=== PATIENT | female | born 1930 | race Caucasian/White ===

== ENCOUNTER 2019-02-05 11:58 | Emergency (ER) | payer MEDICARE, OTHER ==
[2019-02-05] MEDS ORDERED: SODIUM CHLORIDE 0.9% 1,000 ML IV ONE (12:30)
[2019-02-05] MEDS ORDERED: ONDANSETRON 4 MG/2 ML VIAL IVP STA (12:30)
--- NOTE | 2019-02-05 12:36 | ED ---
General Adult HPI - General Chief complaint: Headache Stated complaint: vomiting, weakness Time Seen by Provider: 02/05/19 12:10 Source: patient Mode of arrival: wheelchair Limitations: no limitations - History of Present Illness Initial comments: Is an 88-year-old female who presents emergency department for generalized fatigue, headache, nausea and vomiting. The patient states that she woke up this morning and felt in her usual state of health however after having a couple coffee she developed some generalized fatigue and some shakiness. She states that she then developed some nausea and a frontal headache. She states that she's vomited about 4 times since that time. She is unable to keep down any fluids. She states that the headache is bifrontal and does not radiate. She has no changes to her vision. No focal weakness or numbness. She states that she does not have any abdominal discomfort however does admit to nausea. She denies any diarrhea however does admit to the soft stools which are chronic for her. No chest pain or shortness of breath currently however the daughter states that she has been having some difficulty with shortness of breath over the last few months with exertion. No lower extremity swelling. She states that she's been urinating normally without any dysuria. She denies any other acute complaints at this time. - Related Data Home Medications Medication Instructions Recorded Confirmed Levothyroxine Sodium [Synthroid] 100 mcg PO DAILY 05/17/15 02/05/19 amLODIPine BESYLATE [Norvasc] 2.5 mg PO DAILY 05/17/15 02/05/19 Multivitamins, Thera [Multivitamin 1 tab PO DAILY 02/05/19 02/05/19 (formulary)] Previous Rx's Medication Instructions Recorded Ondansetron Odt [Zofran Odt] 4 mg PO Q8HR PRN #10 tab 02/05/19 Allergies Allergy/AdvReac Type Severity Reaction Status Date / Time levofloxacin Allergy Unknown Verified 02/05/19 13:05 Review of Systems ROS Statement: Those systems with pertinent positive or pertinent negative responses have been documented in the HPI. ROS Other: All systems not noted in ROS Statement are negative. Past Medical History Past Medical History: Hyperlipidemia, Hypertension, Myocardial Infarction ([place]), Thyroid Disorder History of Any Multi-Drug Resistant Organisms: None Reported Past Surgical History: Appendectomy, Heart Catheterization With Stent, Hysterectomy, Orthopedic Surgery, Tonsillectomy Past Psychological History: No Psychological Hx Reported Smoking Status: Former smoker Past Alcohol Use History: None Reported Past Drug Use History: None Reported General Exam - General Exam Comments Initial Comments: Constitutional: Awake alert Appears comfortable Head: Normocephalic atraumatic Eyes: no conjunctival injection No scleral icterus EOMI pupils are 4 mm and reactive bilaterally Neck: No JVD Supple Heart: Regular rate rhythm normal S1-S2 no murmurs Lungs: Clear to auscultation bilaterally No wheezing No rales Abdomen: Soft nondistended nontender Extremities: Non edematous DP pulses intact Radial pulses intact Neuro: A&Ox3, cranial nerves II through XII are grossly intact, 5 out of 5 strength in upper and lower Chevys bilaterally, sensation intact in all extremities, no ataxia with finger-nose and heel to velez testing No focal neurologic deficits Psych: Appropriate mood and affect Limitations: no limitations Course Vital Signs 02/05/19 02/05/19 02/05/19 12:04 14:10 15:32 Temperature 97.3 F L 98.2 F Pulse Rate 63 66 64 Respiratory 18 20 16 Rate Blood Pressure 140/78 177/78 187/78 O2 Sat by Pulse 97 98 98 Oximetry Medical Decision Making - Medical Decision Making This is an 88-year-old female who presents emergency department for nausea, vomiting, fatigue, and headache. The headache had resolved by the time she got emergency department. She no focal neurologic deficits on examination. CT the head did not show any acute abnormalities. Blood work was reviewed and unremarkable as well. The patient felt improved after Zofran. At this time I feel that she is likely suffering from a viral illness however needs to monitor her symptoms closely. I told to return if she has worsening or recurring symptoms. Follow up closely with her primary doctor. All questions were answered. - Lab Data Result diagrams: 02/05/19 12:50 02/05/19 12:50 Lab Results 02/05/19 02/05/19 02/05/19 Range/Units 12:50 12:50 12:50 WBC 9.3 (3.8-10.6) k/uL RBC 4.44 (3.80-5.40) m/uL Hgb 13.2 (11.4-16.0) gm/dL Hct 40.4 (34.0-46.0) % MCV 90.9 (80.0-100.0) fL MCH 29.7 (25.0-35.0) pg MCHC 32.6 (31.0-37.0) g/dL RDW 13.4 (11.5-15.5) % Plt Count 267 (150-450) k/uL Neutrophils % 82 % Lymphocytes % 11 % Monocytes % 4 % Eosinophils % 1 % Basophils % 0 % Neutrophils # 7.6 (1.3-7.7) k/uL Lymphocytes # 1.0 (1.0-4.8) k/uL Monocytes # 0.4 (0-1.0) k/uL Eosinophils # 0.1 (0-0.7) k/uL Basophils # 0.0 (0-0.2) k/uL Sodium 140 (137-145) mmol/L Potassium 4.5 (3.5-5.1) mmol/L Chloride 105 (98-107) mmol/L Carbon Dioxide 27 (22-30) mmol/L Anion Gap 8 mmol/L BUN 32 H (7-17) mg/dL Creatinine 0.84 (0.52-1.04) mg/dL Est GFR (CKD-EPI)AfAm 73 (>60 ml/min/1.73 sqM) Est GFR (CKD-EPI)NonAf 63 (>60 ml/min/1.73 sqM) Glucose 117 H (74-99) mg/dL Calcium 9.9 (8.4-10.2) mg/dL Magnesium 2.2 (1.6-2.3) mg/dL Total Bilirubin 0.4 (0.2-1.3) mg/dL AST 24 (14-36) U/L ALT 19 (9-52) U/L Alkaline Phosphatase 96 (38-126) U/L Troponin I <0.012 (0.000-0.034) ng/mL Total Protein 6.8 (6.3-8.2) g/dL Albumin 4.1 (3.5-5.0) g/dL Lipase 104 (23-300) U/L Urine Color Urine Appearance (Clear) Urine pH (5.0-8.0) Ur Specific [place] (1.001-1.035) Urine Protein (Negative) Urine Glucose (UA) (Negative) Urine Ketones (Negative) Urine Blood (Negative) Urine Nitrite (Negative) Urine Bilirubin (Negative) Urine Urobilinogen (<2.0) mg/dL Ur Leukocyte Esterase (Negative) Ur Squamous Epith Cells (0-4) /hpf Urine Bacteria (None) /hpf Urine Mucus (None) /hpf 02/05/19 Range/Units 13:42 WBC (3.8-10.6) k/uL RBC (3.80-5.40) m/uL Hgb (11.4-16.0) gm/dL Hct (34.0-46.0) % MCV (80.0-100.0) fL MCH (25.0-35.0) pg MCHC (31.0-37.0) g/dL RDW (11.5-15.5) % Plt Count (150-450) k/uL Neutrophils % % Lymphocytes % % Monocytes % % Eosinophils % % Basophils % % Neutrophils # (1.3-7.7) k/uL Lymphocytes # (1.0-4.8) k/uL Monocytes # (0-1.0) k/uL Eosinophils # (0-0.7) k/uL Basophils # (0-0.2) k/uL Sodium (137-145) mmol/L Potassium (3.5-5.1) mmol/L Chloride (98-107) mmol/L Carbon Dioxide (22-30) mmol/L Anion Gap mmol/L BUN (7-17) mg/dL Creatinine (0.52-1.04) mg/dL Est GFR (CKD-EPI)AfAm (>60 ml/min/1.73 sqM) Est GFR (CKD-EPI)NonAf (>60 ml/min/1.73 sqM) Glucose (74-99) mg/dL Calcium (8.4-10.2) mg/dL Magnesium (1.6-2.3) mg/dL Total Bilirubin (0.2-1.3) mg/dL AST (14-36) U/L ALT (9-52) U/L Alkaline Phosphatase (38-126) U/L Troponin I (0.000-0.034) ng/mL Total Protein (6.3-8.2) g/dL Albumin (3.5-5.0) g/dL Lipase (23-300) U/L Urine Color Yellow Urine Appearance Cloudy H (Clear) Urine pH 6.5 (5.0-8.0) Ur Specific [place] 1.017 (1.001-1.035) Urine Protein Negative (Negative) Urine Glucose (UA) Negative (Negative) Urine Ketones Trace H (Negative) Urine Blood Negative (Negative) Urine Nitrite Positive H (Negative) Urine Bilirubin Negative (Negative) Urine Urobilinogen <2.0 (<2.0) mg/dL Ur Leukocyte Esterase Small H (Negative) Ur Squamous Epith Cells 1 (0-4) /hpf Urine Bacteria Many H (None) /hpf Urine Mucus Rare H (None) /hpf Disposition Clinical Impression: Nausea & vomiting Disposition: HOME SELF-CARE Condition: Stable Instructions (If sedation given, give patient instructions): Acute Nausea and Vomiting (ED) Prescriptions: Ondansetron Odt [Zofran Odt] 4 mg PO Q8HR PRN #10 tab PRN Reason: Nausea Is patient prescribed a controlled substance at d/c from ED?: No Referrals: Angel Damian MD [Primary Care Provider] - 1-2 days
[2019-02-05 13:00] LABS: Basophils % (A) 0 %; Eosinophils # (A) 0.1 k/uL (0-0.7); Eosinophils % (A) 1 %; HCT 40.4 % (34.0-46.0); HGB 13.2 gm/dL (11.4-16.0); Lymphocytes % (A) 11 %; MCH 29.7 pg (25.0-35.0); MCHC 32.6 g/dL (31.0-37.0); MCV 90.9 fL (80.0-100.0); Mean Platelet Volume 7.6; Monocytes # (A) 0.4 k/uL (0-1.0); Monocytes % (A) 4 %; Neutrophils # (A) 7.6 k/uL (1.3-7.7); Neutrophils % (A) 82 %; Platelet Count 267 k/uL (150-450); RBC 4.44 m/uL (3.80-5.40); RDW 13.4 % (11.5-15.5); WBC 9.3 k/uL (3.8-10.6)
[2019-02-05 13:07] LABS: Albumin 4.1 g/dL (3.5-5.0); Calcium 9.9 mg/dL (8.4-10.2); Magnesium 2.2 mg/dL (1.6-2.3); Potassium 4.5 mmol/L (3.5-5.1); Total Bilirubin 0.4 mg/dL (0.2-1.3); Total Protein 6.8 g/dL (6.3-8.2)
[2019-02-05 14:00] LABS: Appearance,Urine Cloudy (Clear); Bacteria,Urine Many /hpf; Bilirubin,Urine Negative (Negative); Blood,Urine Negative (Negative); Color,Urine Yellow; Glucose,Urine (UA) Negative (Negative); Ketones,Urine Trace (Negative); Leukocyte Esterase,Urine Small (Negative); Mucus,Urine Rare /hpf; Nitrite,Urine Positive (Negative); PH, Urine 6.5 (5.0-8.0); Protein,Urine Negative (Negative); Specific Gravity,Urine 1.017 (1.001-1.035); Squamous Epithelial Cell,Urine 1 /hpf (0-4); Urobilinogen,Urine <2.0 mg/dL (<2.0)
--- NOTE | 2019-02-05 14:19 | XR ---
EXAMINATION TYPE: XR chest 2V DATE OF EXAM: 02/05/2019 COMPARISON: NONE HISTORY: Shortness of breath TECHNIQUE: Frontal and lateral views of the chest are obtained. FINDINGS: There is no focal air space opacity, pleural effusion, or pneumothorax seen. The cardiac silhouette size is within normal limits. The osseous structures are intact. Aorta is dense. Right h emidiaphragm slightly elevated. IMPRESSION: No acute cardiopulmonary process.
--- NOTE | 2019-02-05 14:21 | CT ---
EXAMINATION TYPE: CT brain wo con DATE OF EXAM: 02/05/2019 COMPARISON: None HISTORY: Headache, nausea, dizziness. CT DLP: 1099.4 mGycm Automated exposure control for dose reduction was used. Helical imaging through the brain. FINDINGS: There is cortical atrophy present. Periventricular white matter shows low attenuation. There are cere bral vascular calcifications present. Calvarium is intact. Paranasal sinuses and mastoid air cells ar e well aerated. Orbits are symmetric. IMPRESSION: AGE-RELATED CHANGES OF ATROPHY AND CHRONIC SMALL VESSEL ISCHEMIA.
[2019-02-05 15:33] VITALS: BP 187/78; PULSE 64; RESP 16; TEMP 98.2
== END 2019-02-05 15:32 | disposition home or self-care (01) ==
LOC: EC 11:58
DX: R11.2 Nausea with vomiting, unspecified (principal); R51 Headache; R53.83 Other fatigue; E07.9 Disorder of thyroid, unspecified; I10 Essential (primary) hypertension; I25.2 Old myocardial infarction; Z79.890 Hormone replacement therapy; Z79.899 Other long term (current) drug therapy; Z88.1 Allergy status to other antibiotic agents; Z87.891 Personal history of nicotine dependence; Z95.5 Presence of coronary angioplasty implant and graft
CPT/HCPCS: 99284; 96374; 96361; 36415; 93005; 80053; 83690; 83735; 84484; 85025; 81001; 87086; 87077; 87186; 71046; 70450; J2405

== ENCOUNTER → 2019-04-15 | Outpatient (CLI) | payer MEDICARE | END | disposition home or self-care (01) | LOC: LABPAT 15:15 | PROVIDERS: ATTEND Orthopaedic Surgery | DX: Z01.812 Encounter for preprocedural laboratory examination (principal); M16.12 Unilateral primary osteoarthritis, left hip | CPT/HCPCS: 87070 ==

== ENCOUNTER 2019-04-26 08:35 | Inpatient (IN) | payer MEDICARE ==
[2019-04-19 14:49] VITALS: BMI 28.6
--- NOTE | 2019-04-26 00:36 | HP ---
HISTORY AND PHYSICAL REASON FOR ADMISSION: Surgery scheduled for 04/26/2019 HISTORY OF PRESENT ILLNESS: Gurjit Driver 89-year-old patient seen with symptomatic left hip osteoarthritis. We discussed treatment options. She elected to proceed with direct anterior left total hip arthroplasty. Consent regarding the procedure was obtained. Preoperative medical clearance was provided by Dr. Damian. She preoperative cardiac clearance was provided by Dr. Bullard. PAST MEDICAL HISTORY: History is hypertension, hypothyroidism. SURGICAL HISTORY: Hysterectomy. MEDICATIONS: Amlodipine, Synthroid. ALLERGIES: LEVOFLOXACIN. SOCIAL HISTORY: She denies tobacco use. PHYSICAL EXAMINATION: Physical evaluation of the left hip reveals severe limited range of motion of her left hip with severe pain and positive hip impingement sign. Straight leg raise negative. Her distal neurovascular exam is intact. RADIOGRAPHS: Left hip radiographs reveal severe osteoarthritic changes. IMPRESSION: 1. Left hip osteoarthritis. 2. Hypothyroidism. 3. Hypertension. PLAN: Direct anterior left total hip arthroplasty. Surgery scheduled for 04/26/2019. MMODL / IJN: [id number] /
[~2019-04-26 08:35] MED LIST: ACETAMINOPHEN TAB 500 MG TAB PO ONE; LIDOCAINE 1% 20 ML VIAL (10MG/ML) FOR IV START INTRADERMA PRN; MELOXICAM 7.5 MG TAB PO ONE; MIDAZOLAM 2 MG/2 ML VIAL IV PRN; ROPIVACAINE 246.25 MG, EPINEPHrine 0.5 MG, KETOROLAC 30 MG, cloNIDine HCL/PF 80 MCG, WA... MISCELLANE ONE; TRANEXAMIC ACID 1,000 MG in SODIUM CHLORIDE 0.9% 100 ML IVPB ONE
[2019-04-26] MEDS: LACTATED RINGERS 1,000 ML IV SCH (12:22)
[2019-04-26] MEDS ORDERED: PROPOFOL 10 MG/ML 20 ML VIAL IV ONE (12:27)
[2019-04-26] MEDS ORDERED: ePHEDrine SULFATE/0.9% NACL/PF 50 MG/5 ML SYRINGE IV ONE (12:27)
[2019-04-26] MEDS ORDERED: fentaNYL (PF) 50 MCG/ML 2 ML AMP ONE (12:27)
[2019-04-26] MEDS ORDERED: TRANEXAMIC ACID 1,000 MG/10 ML VIAL ONE (12:27)
[2019-04-26] MEDS ORDERED: MIDAZOLAM 2 MG/2 ML VIAL ONE (12:27)
[2019-04-26] MEDS ORDERED: SODIUM CHLORIDE 0.9% 100 ML BAG ONE (12:27)
[2019-04-26] MEDS ORDERED: PHENYLEPHRINE-0.9% NACL SYG 1 MG/10 ML SYRINGE ONE (12:27)
[2019-04-26] MEDS ORDERED: DEXAMETHASONE SOD PHOSPHATE 10 MG/ML 1 ML VIAL IV ONE (12:29)
[2019-04-26] MEDS ORDERED: ONDANSETRON 4 MG/2 ML VIAL IVP ONE (12:29)
[2019-04-26] MEDS ORDERED: ceFAZolin 3,000 MG in SODIUM CHLORIDE 0.9% IRRIGATIO 3,000 ML IRRIGATION ONE (12:41)
[2019-04-26] MEDS ORDERED: NALOXONE 0.4 MG/ML 1 ML VIAL IV PRN (14:16)
[2019-04-26] MEDS ORDERED: HYDROcodone/APAP 5-325MG 1 EACH TAB PO PRN (14:16)
[2019-04-26] MEDS ORDERED: ONDANSETRON 4 MG/2 ML VIAL IVP PRN (14:16)
[2019-04-26] MEDS ORDERED: HYDROmorphone 0.5 MG/0.5 ML SYRINGE IVP PRN ×3 (14:16)
--- NOTE | 2019-04-26 14:16 | P.OP ---
Date of Procedure: 04/26/19 Preoperative Diagnosis: Left hip osteoarthritis Postoperative Diagnosis: Left hip osteoarthritis Procedure(s) Performed: Direct anterior left total hip arthroplasty Implants: 1. Depuy Corail KA size 13 standard collar press-fit femoral stem 2. Depuy pinnacle 58 mm multi hole press-fit acetabular shell 3. Depuy pinnacle polyethylene acetabular liner neutral 36 mm ID 58 mm OD 4. Biolox delta ceramic femoral head +1.5 36 mm Anesthesia: local, spinal Surgeon: Lyndon Rodrigues [employer] Receiving Clerk #1: Warren Medina Estimated Blood Loss (ml): 400 Pathology: other (Femoral head) Condition: stable Disposition: PACU Indications for Procedure: 89-year-old patient seen with symptomatic left hip osteoarthritis. After treatment options were discussed, she elected to proceed with total hip arthroplasty. Operative Findings: See description of procedure Description of Procedure: The patient was taken to the operative suite. Patient underwent a spinal anesthetic by the department of anesthesia. Patient was then transferred to the [place] table. Patient was given preoperative IV antibiotics and TXA. Both lower extremities were placed in standard leg spars. The hip was then prepped and draped in the normal sterile orthopedic fashion. A standard anterior incision was made beginning 3 cm lateral and 1 cm distal to the ASIS extending 10 cm. Dissection was then carried down through the subcutaneous soft tissues down to the fascia overlying the tensor fascia juan r. An incision was now made through the fascia. Careful dissection was taken down exposing the tensor fascia juan r muscle. A Cobra retractor was now placed along the medial femoral neck and a second one along the lateral femoral neck. The venous circumflex vessels were now identified, cauterized and clipped. We identified the anterior hip capsule. An incision was made through the hip capsule along the lateral border. I performed a partial anterior capsulectomy. Retractors were now placed around th e femoral neck itself. A femoral neck cut was now made with a sagittal saw. It was completed with an osteotome at the lateral neck area. The femoral head was now removed without difficulty. The extremity was now rotated to 45 of external rotation. It was locked in position. Residual labrum was now debrided out. Serial reaming was performed of the acetabulum while Javier SHORT assisted holding an anterior retractor for exposure. Once we reached the appropriate size and a trial was position and fit nicely. The appropriate size was now chosen opened and made available. It was introduced into the acetabulum without difficulty. The C-arm/fluoroscopy was now brought into the operative field. We made sure we had a true AP pelvic view. We now under direct C- arm/fluoroscopy introduced into the acetabular component with appropriate version and inclination. I held the cup in appropriate position well Javier SHORT used a mallet to seat the acetabular component. I noted the component now to be well seated and stable. Acetabular cup introduce her was removed. The C-arm was pulled back. An appropriate liner was introduced and clicked into position. It was felt to be stable. At this point retractors were removed. The extremity was now placed into 120 external rotation with no traction. The leg was now dropped to the ground and adducted. Appropriate retractors were now positioned along the proximal femur. We also placed our femoral look into position. Additional capsular releasing was performed to gain access to the proximal femur. We now used a box osteotome. A canal finder was now utilized. Serial broaching was now performed with the assistance of Javier SHORT tapping the broaches down with a mallet while held the broach in appropriate rotation and position. This was done until we reached the appropriate size with good overall rotational stability. Appropriate calcar planing was performed. A trial head/neck was placed into position. The hip was now reduced. The C- arm/fluoroscopy was brought back into the operative field. A spot film was obtained of the nonoperative hip. A spot film was obtained of the trial components. Overlays were performed, we noted good overall alignment and positioning for determining leg length. The C-arm/fluoroscopy was pulled back. Retractors were repositioned and the hip was dislocated. The leg was again taken down to the ground and adducted. Appropriate retractors were repositioned as well as the femoral hook. All trial components were removed. The femoral implant was opened along with the femoral head. The femoral implant was introduced on the appropriate handle into our pre-broached area. I held the component position well Javier SHORT used a mallet to seat the femoral component. The femoral component was now noted to be well seated and stable.. The femoral head was introduced with good positioning and fixation noted. Retractors were now removed. The hip was now reduced. There appeared be good positioning of the hip confirmed on intraoperative fluoroscopy. Spot films were obtained to document this. A second gram of TXA was given. The deep and superficial soft tissues were infiltrated with local analgesic. Bipolar cautery had been utilized intermittently through the procedure for hemostasis. The wound was irrigated copiously with pulse lavage mechanical irrigation. The fascia was repaired with Vicryl suture. The subcutaneous soft tissues were repaired in layers with Vicryl suture. The skin was approximated with pernio/Dermabond. Sterile dressings were applied. Patient was then awakened, transferred to a bed and taken to recovery in stable condition. Javier SHORT assisted with the complex procedure.
[2019-04-26] MEDS ORDERED: LACTATED RINGERS 1,000 ML IV ONE (14:21)
[2019-04-26] MEDS: fentaNYL (PF) 50 MCG/ML 2 ML AMP IV PRN ×2 (14:43→15:03)
--- NOTE | 2019-04-26 14:57 | XR ---
EXAMINATION TYPE: XR Hip Limited LT, FL guidance operating room EXAMINATION TYPE: XR Hip Limited LT, FL guidance operating room DATE OF EXAM: 04/26/2019 CLINICAL HISTORY: Left hip hardware placement TECHNIQUE: Fluoroscopy. COMPARISON: None. FINDINGS: Fluoroscopic guidance was provided during procedure performed by Dr. Rodrigues. A total o f 14 seconds of fluoroscopic time was utilized during the procedure and 2 spot images was acquired de monstrating a left hip arthroplasty. IMPRESSION: As Above.
[2019-04-26] MEDS: HYDROmorphone 1 MG/ML 1 ML SYRINGE IVP ONE ×2 (15:10→15:17)
[2019-04-26] MEDS: MEPERIDINE 50 MG/ML SYRINGE IVP ONE ×2 (15:38→15:52)
[2019-04-26] MEDS: SODIUM CHLORIDE 0.9% 1,000 ML IV SCH (18:39)
[2019-04-26] MEDS: SENNOSIDES-DOCUSATE SODIUM 1 EACH TAB PO SCH (20:37)
[2019-04-26] MEDS: HYDROcodone/APAP 5-325MG 1 EACH TAB PO PRN (20:41)
[2019-04-27] MEDS: HYDROcodone/APAP 5-325MG 1 EACH TAB PO PRN ×3 (04:11→17:26)
[2019-04-27] MEDS: LEVOTHYROXINE 100 MCG TAB PO SCH (05:18)
[2019-04-27] MEDS: LACTATED RINGERS 1,000 ML IV SCH (05:21)
[2019-04-27 08:12] LABS: Basophils % (A) 0 %; Eosinophils # (A) 0.1 k/uL (0-0.7); Eosinophils % (A) 0 %; HCT 32.4 % (34.0-46.0); HGB 10.6 gm/dL (11.4-16.0); Lymphocytes # (A) 1.9 k/uL (1.0-4.8); Lymphocytes % (A) 16 %; MCH 30.8 pg (25.0-35.0); MCHC 32.8 g/dL (31.0-37.0); MCV 93.8 fL (80.0-100.0); Mean Platelet Volume 7.7; Monocytes # (A) 0.8 k/uL (0-1.0); Monocytes % (A) 7 %; Neutrophils # (A) 8.9 k/uL (1.3-7.7); Neutrophils % (A) 76 %; Platelet Count 219 k/uL (150-450); RBC 3.45 m/uL (3.80-5.40); RDW 13.2 % (11.5-15.5); WBC 11.8 k/uL (3.8-10.6)
[2019-04-27] MEDS: amLODIPine 2.5 MG TAB PO SCH (08:23)
[2019-04-27] MEDS: ENOXAPARIN 40 MG/0.4 ML SYRINGE SQ SCH (08:23)
[2019-04-27] MEDS: FAMOTIDINE 20 MG TAB PO SCH (08:23)
[2019-04-27 08:48] LABS: Albumin 3.2 g/dL (3.5-5.0); Calcium 9.1 mg/dL (8.4-10.2); Potassium 4.4 mmol/L (3.5-5.1); Total Bilirubin 0.4 mg/dL (0.2-1.3); Total Protein 5.7 g/dL (6.3-8.2)
--- NOTE | 2019-04-27 10:17 | P.CONS ---
History of Present Illness - Reason for Consult Consult date: 04/27/19 Medical management Requesting physician: Lyndon Rodrigues - History of Present Illness This is an 89-year-old female patient of Dr. Damian. Patient presented for an elective total left hip arthroplasty with Dr. Rodrigues. Patient is currently postop day 1. Patient has known past medical history of osteoarthritis, coronary artery disease with history of 2 stents last one being in 2011, hyperte nsion and hypothyroidism. Patient is currently resting comfortably in bed. Family is at bedside. Patient reports that she has been up ambulating. Plans for DC home with home health care. Patient denies any chest pain or shortness of breath. Patient denies nausea vomiting or diarrhea. Patient denies urinary burning or frequency. Review of Systems Visit for HPI otherwise unremarkable Past Medical History Past Medical History: Coronary Artery Disease (CAD), Hypertension, Myocardial Infarction ([place]), Osteoarthritis (OA), Thyroid Disorder Last Myocardial Infarction Date:: 2011 History of Any Multi-Drug Resistant Organisms: None Reported Past Surgical History: Appendectomy, Heart Catheterization With Stent, Hysterectomy, Orthopedic Surgery, Tonsillectomy Additional Past Surgical History / Comment(s): STENTS X2, ALEC CAT, GANGLION CYST LEFT FOOT Past Anesthesia/Blood Transfusion Reactions: No Reported Reaction Date of Last Stent Placement:: 2011 Past Psychological History: No Psychological Hx Reported Smoking Status: Former smoker Past Alcohol Use History: None Reported Additional Past Alcohol Use History / Comment(s): QUIT SMOKING 2011, SMOKED 1/2 PPD FROM AGE 22 Past Drug Use History: None Reported - Past Family History Mother Family Medical History: No Reported History Medications and Allergies Home Medications Medication Instructions Recorded Confirmed Type Levothyroxine Sodium [Synthroid] 100 mcg PO DAILY 05/17/15 04/26/19 History amLODIPine BESYLATE [Norvasc] 2.5 mg PO DAILY 05/17/15 04/26/19 History Allergies Allergy/AdvReac Type Severity Reaction Status Date / Time levofloxacin Allergy Unknown Verified 04/26/19 15:10 Physical Exam Vitals: Vital Signs Temp Pulse Pulse Pulse Resp BP Pulse Ox 04/27/19 08:22 69 107/64 04/27/19 07:00 98.3 F 66 16 105/55 93 L 04/27/19 04:10 73 120/63 04/27/19 03:37 17 04/27/19 01:31 98.4 F 64 18 97/59 97 04/27/19 00:00 16 04/26/19 18:59 97.5 F L 69 18 106/65 95 04/26/19 18:10 75 122/65 04/26/19 17:40 55 L 130/62 04/26/19 17:25 76 134/63 04/26/19 17:10 67 163/99 04/26/19 16:55 75 145/57 04/26/19 16:35 86 88/42 89 L 04/26/19 16:20 97.6 F 78 15 126/59 100 04/26/19 16:02 69 16 117/53 97 04/26/19 15:47 84 16 138/47 92 L 04/26/19 15:32 80 18 121/50 92 L 04/26/19 15:17 66 16 129/47 92 L 04/26/19 15:02 80 18 143/63 97 04/26/19 14:46 79 18 126/56 96 04/26/19 14:35 97.1 F L 78 16 127/50 99 04/26/19 11:58 97.0 F L 62 18 172/73 96 Intake and Output 04/26/19 04/27/19 04/27/19 22:59 06:59 14:59 Intake Total 790 550 320 Balance 790 550 320 Intake: IV 350 Intake, IV Titration 550 Amount Sodium Chloride 0.9% 1, 550 000 ml @ 50 drops/hr IV . Q[facility]H [facility] Rx#:[id number] Oral 440 320 Other: Voiding Method Bedside Commode Bedside Commode # Voids 1 Head normocephalic Neck supple Lungs clear to auscultation bilaterally no wheezing or crackles Heart regular rate and rhythm S1-S2, no rub or gallop Abdomen is soft nontender nondistended positive bowel sounds no hepatosplenomeg marty Extremities no edema. Left hip dressing is clean dry and intact Neuro alert and orientated to 3 Results CBC & Chem 7: 04/27/19 07:39 04/27/19 07:39 Labs: Abnormal Lab Results - Last 24 Hours (Table) 04/27/19 04/27/19 Range/Units 07:39 07:39 WBC 11.8 H (3.8-10.6) k/uL RBC 3.45 L (3.80-5.40) m/uL Hgb 10.6 L (11.4-16.0) gm/dL Hct 32.4 L (34.0-46.0) % Neutrophils # 8.9 H (1.3-7.7) k/uL BUN 23 H (7-17) mg/dL AST 38 H (14-36) U/L Total Protein 5.7 L (6.3-8.2) g/dL Albumin 3.2 L (3.5-5.0) g/dL Assessment and Plan Assessment: 1. Left hip osteoarthritis status post total left hip arthroplasty with Dr. Rodrigues. Patient is currently postop day 1. Pain meds per orthopedic services. Lovenox for DVT prophylaxis per ortho. 2. History of coronary artery disease with stents 2 last 05/21/2012. Patient reports that she is currently not on any anticoagulation 3. History of essential hypertension maintained on Norvasc 4. History of hypothyroidism. Synthroid resumed 5. Leukocytosis. WBC is slightly elevated at 11.8 patient denies any acute symptoms repeat CBC will be ordered in a.m. afebrile 6. Anemia. Iron studies have been ordered DVT prophylaxis Lovenox. GI prophylaxis pepcid Per patient planning to be DC'd home tomorrow with home healthcare thank you for this consultation we will continue to follow patient closely throughout stay Time with Patient: Greater than 30 (Greater than 60% of the total time spent in counseling and coordination of care. I performed an examination of the patient and discussed their management with the Nurse Practitioner. I have reviewed the Nurse Practitioner's notes and agree with the documented findings and plan of care)
--- NOTE | 2019-04-27 12:27 | P.PN ---
Subjective Progress Note Date: 04/27/19 Principal diagnosis: Status post direct anterior left total hip arthroplasty Patient apparently at the bedside, she has family present. She's ambulated with therapy. She denies any chest pain or shortness of breath. Objective - Vital Signs Vital signs: Vital Signs Temp 98.3 F 04/27/19 07:00 Pulse 69 04/27/19 08:22 Resp 16 04/27/19 07:00 BP 107/64 04/27/19 08:22 Pulse Ox 93 L 04/27/19 07:00 Intake & Output 04/26/19 04/27/19 04/27/19 18:59 06:59 18:59 Intake Total 1701 990 320 Output Total 400 Balance 1301 990 320 Intake: IV 1701 Intake, IV Titration 550 Amount Sodium Chloride 0.9% 1, 550 000 ml @ 50 drops/hr IV . Q24H [facility] Rx#:[id number] Oral 440 320 Output: Estimated Blood Loss 400 Other: Voiding Method Bedside Commode Bedside Commode # Voids 1 - Exam Left lower extremity: Incision is clean, dry, and intact. The exofin fusion tape is in good condi tion. There is minimal soft tissue swelling and ecchymosis surrounding the medial and lateral aspects of the incision. Calf is soft, no tenderness with palpation. Plantar flexion, dorsiflexion, EHL, FHL are intact. Sensory exam to light touch throughout the extremity is intact, dorsal pedis pulses 2+. - Labs CBC & Chem 7: 04/27/19 07:39 04/27/19 07:39 Labs: Abnormal Lab Results - Last 24 Hours (Table) 04/27/19 04/27/19 Range/Units 07:39 07:39 WBC 11.8 H (3.8-10.6) k/uL RBC 3.45 L (3.80-5.40) m/uL Hgb 10.6 L (11.4-16.0) gm/dL Hct 32.4 L (34.0-46.0) % Neutrophils # 8.9 H (1.3-7.7) k/uL BUN 23 H (7-17) mg/dL AST 38 H (14-36) U/L Total Protein 5.7 L (6.3-8.2) g/dL Albumin 3.2 L (3.5-5.0) g/dL Assessment and Plan Plan: Assessment: Postop day 1 status post direct anterior left total hip arthroplasty Plan: Pain control, continue current medication . GI and DVT prophylaxis, continue current medication Medical recommendations Encourage incentive spirometer Daily dressing changes/ice the leg Discharge planning: Plan for discharge home tomorrow Time with Patient: Less than 30
[2019-04-27] MEDS: SODIUM CHLORIDE 0.9% 1,000 ML IV SCH (15:54)
[2019-04-27] MEDS: SENNOSIDES-DOCUSATE SODIUM 1 EACH TAB PO SCH (21:34)
[2019-04-28] MEDS: HYDROcodone/APAP 5-325MG 1 EACH TAB PO PRN ×3 (00:19→13:19)
[2019-04-28 01:11] VITALS: TEMP 99.8
[2019-04-28] MEDS: LACTATED RINGERS 1,000 ML IV SCH (05:47)
[2019-04-28] MEDS: LEVOTHYROXINE 100 MCG TAB PO SCH (06:25)
[2019-04-28] MEDS: ENOXAPARIN 40 MG/0.4 ML SYRINGE SQ SCH (08:05)
[2019-04-28] MEDS: amLODIPine 2.5 MG TAB PO SCH (08:05)
[2019-04-28] MEDS: FAMOTIDINE 20 MG TAB PO SCH (08:05)
[2019-04-28] MEDS: SODIUM CHLORIDE 0.9% 1,000 ML IV SCH (08:26)
[2019-04-28 08:27] VITALS: BP 108/67; PULSE 78; RESP 15
--- NOTE | 2019-04-28 09:47 | P.PN ---
Subjective Progress Note Date: 04/28/19 This is an 89-year-old female patient of Dr. Damian. Patient presented for an elective total left hip arthroplasty with Dr. Rodrigues. Patient is currently postop day 1. Patient has known past medical history of osteoarthritis, coronary artery disease with history of 2 stents last one being in 2011, hy pertension and hypothyroidism. Patient is currently resting comfortably in bed. Family is at bedside. Patient reports that she has been up ambulating. Plans for DC home with home health care. Patient denies any chest pain or shortness of breath. Patient denies nausea vomiting or diarrhea. Patient denies urinary burning or frequency. On 04/28/2018 patient is alert and oriented 3. Patient reports that she feels tired but reports she was up at times using bathroom throughout the night. Patient also has low-grade temp of 99.8. At this time will order urinary analysis to evaluate for possible UTI. Patient denies cough or shortness breath. Patient denies nausea vomiting or diarrhea. Patient denies any significant urinary burning. Objective - Vital Signs Vital signs: Vital Signs Temp 99.8 F H 04/28/19 07:00 Pulse 78 04/28/19 07:00 Resp 15 04/28/19 07:00 BP 108/67 04/28/19 07:00 Pulse Ox 96 04/28/19 07:00 Intake & Output 04/27/19 04/28/19 04/28/19 18:59 06:59 18:59 Intake Total 960 580 Balance 960 580 Intake: IV 400 Sodium Chloride 0.9% 1, 400 000 ml @ 50 drops/hr IV . Q24H [facility] Rx#:[id number] Oral 560 580 Other: Voiding Method Bedside Commode Bedside Commode Bedside Commode # Voids 2 # Bowel Movements 1 - Exam Head normocephalic Neck supple Lungs clear to auscultation bilaterally no wheezing or crackles Heart regular rate and rhythm S1-S2, no rub or gallop Abdomen is soft nontender nondistended positive bowel sounds no hepatosplenomegaly Extremities no edema. Right hip dressing is clean dry and intact Neuro alert and orientated to 3 - Labs CBC & Chem 7: 04/27/19 07:39 04/27/19 07:39 Assessment and Plan Assessment: 1. Left hip osteoarthritis status post total left hip arthroplasty with Dr. Rodrigues. Patient is currently postop day 2. Pain meds per orthopedic services. Lovenox for DVT prophylaxis per ortho. 2. History of coronary artery disease with stents 2 last 05/21/2012. Patient reports that she is currently not on any anticoagulation 3. History of essential hypertension maintained on Norvasc 4. History of hypothyroidism. Synthroid resumed 5. Leukocytosis. WBC is slightly elevated at 11.8 patient denies any acute symptoms repeat CBC will be ordered in a.m.. Low-grade temp 99.8 urinary analysis has been ordered 6. Anemia. Iron studies have been ordered DVT prophylaxis Lovenox. GI prophylaxis pepcid Possible DC home today with home health care thank you for this consultation we will continue to follow patient closely throughout stay
[2019-04-28 10:13] LABS: Appearance,Urine Clear (Clear); Bilirubin,Urine Negative (Negative); Blood,Urine Negative (Negative); Color,Urine Yellow; Glucose,Urine (UA) Negative (Negative); Ketones,Urine 1+ (Negative); Leukocyte Esterase,Urine Negative (Negative); Nitrite,Urine Negative (Negative); Protein,Urine Negative (Negative); Specific Gravity,Urine 1.015 (1.001-1.035); Urobilinogen,Urine <2.0 mg/dL (<2.0)
[2019-04-28 10:32] LABS: Albumin 3.2 g/dL (3.5-5.0); Potassium 3.9 mmol/L (3.5-5.1); Total Bilirubin 0.6 mg/dL (0.2-1.3); Total Protein 5.9 g/dL (6.3-8.2)
--- NOTE | 2019-04-28 11:58 | P.PN ---
Subjective Progress Note Date: 04/28/19 Principal diagnosis: Status post direct anterior left total hip arthroplasty Patient apparently at the bedside, she has family present. She's ambulated with therapy. She denies any chest pain or shortness of breath. Objective - Vital Signs Vital signs: Vital Signs Temp 99.8 F H 04/28/19 07:00 Pulse 78 04/28/19 07:00 Resp 15 04/28/19 07:00 BP 108/67 04/28/19 07:00 Pulse Ox 96 04/28/19 07:00 Intake & Output 04/27/19 04/28/19 04/28/19 18:59 06:59 18:59 Intake Total 960 580 Balance 960 580 Intake: IV 400 Sodium Chloride 0.9% 1, 400 000 ml @ 50 drops/hr IV . Q24H [facility] Rx#:[id number] Oral 560 580 Other: Voiding Method Bedside Commode Bedside Commode Bedside Commode # Voids 2 # Bowel Movements 1 - Exam Left lower extremity: Incision is clean, dry, and intact. The exofin fusion tape is in good condition. There is minimal soft tissue swelling and ecchymosis surrounding the medial and lateral aspects of the incision. Calf is soft, no tenderness with palpation. Plantar flexion, dorsiflexion, EHL, FHL are intact. Sensory exam to light touch throughout the extremity is intact, dorsal pedis pulses 2+. - Labs CBC & Chem 7: 04/27/19 07:39 04/28/19 09:41 Labs: Abnormal Lab Results - Last 24 Hours (Table) 04/28/19 Range/Units 09:41 AST 42 H (14-36) U/L Total Protein 5.9 L (6.3-8.2) g/dL Albumin 3.2 L (3.5-5.0) g/dL Assessment and Plan Plan: Assessment: Postop day #2 status post direct anterior left total hip arthroplasty Plan: Pain control, plan for discharge on oral medication . GI and DVT prophylaxis, aspirin 81 mg twice a day Medical recommendations Encourage incentive spirometer Daily dressing changes/ice the leg Discharge planning: Plan for discharge home today Time with Patient: Less than 30
--- NOTE | 2019-04-28 12:00 | P.DS ---
Providers Date of admission: 04/26/19 11:18 Expected date of discharge: 04/28/19 Attending physician: Lyndon Rodrigues Consults: 04/26/19 14:16 Consult Physician Routine Consulting Provider: Angel Damian Consult Reason/Comments: Medical management Do you want consulting provider notified?: Yes Primary care physician: Angel Damian Hospital Course: Date of admission: 04/26/2019 Date of discharge: 04/28/2019 Admission diagnosis: Status post direct anterior left total hip arthroplasty Discharge diagnosis: Attending physician: Dr. Rodrigues Surgical procedures: Direct anterior left total hip arthroplasty Brief history: Patient is a 89-year-old female with a history of progressive primary left hip osteoarthritis. At this point patient has failed conservative treatment measures and has opted to proceed with a elective direct anterior left total hip arthroplasty. Hospital course: Details of patient's surgery can be found in operative report. Patient tolerated the procedure well and was subsequently transported to orthopedic floor. Patient's orthopeidc and medical care was provided daily. Patient had daily laboratory tests performed for evaluation of overall blood counts. Patient had daily physical therapy to include strengthening range of motion as well as education with walker ambulation. Patient was treated with Lovenox for their postoperative DVT prophylaxis during their inpatient stay. Patient was noted to have a relatively uneventful postoperative course. Patient reported satisfactory pain control with oral pain medications by postoperative day 0. Patient showed satisfactory progress with physical therapy. Patient moved steadily through the program and had no difficulty meeting the goals by postoperative day 2. Given patient's otherwise satisfactory course and having met physical therapy goals, plan is to discharge patient home on postoperative day 2. Discharge condition/disposition: Patient will be discharged home in stable con dition. Discharge medications: Instructions are given on resumption of patient's normal daily medications per primary care recommendation, in addition patient will be prescribed [place] 5 mg/325 mg, Pepcid 20 mg, aspirin 81 mg. Discharge instructions: 1. Wound care and infection precautions, keep incision dry and covered while showering, no lotions, creams, moisturizers. No soaking, tubs, pools, hottubs. Do not scrub over the incision. 2. Weight-bear as tolerated with walker / cane until follow-up. 3. Ice and elevate when necessary. Do not exceed 20 minutes per hour with ice pack. 4. Utilize compression sleeve until seen at first follow up appointment. 5. Visiting nursing care. 6. Home physical therapy 7. Pain meds and anticoagulants per prescription. 8. Pain medication has potential to cause constipation. Increase oral fluid and fiber intake. Contact primary care provider if you have not had a bowel movement within 48 hours after discharge 9. No anti-inflammatory medication until discussed at first post operative visit, this including Motrin, Aleve, Mobic, Diclofenac 10. Follow up in office at 2 weeks postop with Javier Medina PA-C 11. Follow up with your primary care doctor 7-10 days after discharge. 12. Contact [facility] with any questions, . Procedures: Direct anterior left total hip arthroplasty Patient Condition at Discharge: Good Plan - Discharge Summary Discharge Rx Participant: Yes New Discharge Prescriptions: New Aspirin [Adult Low Dose Aspirin EC] 81 mg PO BID #60 tablet. Hydrocodone/Acetaminophen [[place] 5-325] 1 - 2 each PO Q6HR PRN #56 tab PRN Reason: Pain Famotidine [Pepcid] 20 mg PO DAILY #30 tablet No Action amLODIPine BESYLATE [Norvasc] 2.5 mg PO DAILY Levothyroxine Sodium [Synthroid] 100 mcg PO DAILY Discharge Medication List Levothyroxine Sodium [Synthroid] 100 mcg PO DAILY 05/17/15 [History] amLODIPine BESYLATE [Norvasc] 2.5 mg PO DAILY 05/17/15 [History] Aspirin [Adult Low Dose Aspirin EC] 81 mg PO BID #60 tablet. 04/28/19 [Rx] Famotidine [Pepcid] 20 mg PO DAILY #30 tablet 04/28/19 [Rx] Hydrocodone/Acetaminophen [[place] 5-325] 1 - 2 each PO Q6HR PRN #56 tab 04/28/19 [Rx] Follow up Appointment(s)/Referral(s): [facility] [NON-STAFF] - Lyndon Rodrigues DO [Doctor of Osteopathic Medicine] - 05/11/19 3:20 pm [facility], [NON-STAFF] - Activity/Diet/Wound Care/Special Instructions: Orthopedic Discharge Instructions: 1. Wound care and infection precautions, keep incision dry and covered while showering, no lotions, creams, moisturizers. No soaking, pools, hot tubs. Do not scrub over incision. 2. Weight-bear as tolerated with walker / cane until follow-up. 3. Ice and elevate when necessary. Do not exceed 20 minutes per hour with ice pack. 4. Utilize compression sleeve until seen at first follow up appointment. 5. Pain meds and anticoagulants per prescription. 6. Pain medication has potential to cause constipation. Increase oral fluid and fiber intake. Contact primary care provider if you have not had a bowel movement within 48 hours after discharge. 7. No anti-inflammatory medication until discussed at first post operative visit, this including Motrin, Aleve, Mobic, Diclofenac. 8. Follow up in office at 2 weeks postop with Javier Medina PA-C 9. Follow up with your primary care doctor 7-10 days after discharge. 10. Contact [facility] with any questions, [phone]. 11. [facility] will deliver walker to the bedside prior to discharge. Discharge Disposition: HOME WITH HOME HEALTH SERVICES
[2019-04-28 16:04] LABS: Iron Saturation 3.75 (12.00-45.00)
== END 2019-04-28 14:38 | disposition home health service (06) | DRG 470 ==
LOC: 2ORMAIN 11:18 → 4SSUR 14:54
PROVIDERS: ADMIT Orthopaedic Surgery; ATTEND Orthopaedic Surgery
PROC: 0SRB04A Replacement of Left Hip Joint with Ceramic on Polyethylene Synthetic Substitute, Uncemented, Open Approach (ICD-10-PCS; principal; 2019-04-26 12:40)
DX: M16.12 Unilateral primary osteoarthritis, left hip (principal); D64.9 Anemia, unspecified; D72.829 Elevated white blood cell count, unspecified; I10 Essential (primary) hypertension; E03.9 Hypothyroidism, unspecified; E78.00 Pure hypercholesterolemia, unspecified; I25.10 Atherosclerotic heart disease of native coronary artery without angina pectoris; I25.2 Old myocardial infarction; E66.9 Obesity, unspecified; Z68.28 Body mass index [BMI] 28.0-28.9, adult; Z79.890 Hormone replacement therapy; Z79.899 Other long term (current) drug therapy; Z87.891 Personal history of nicotine dependence; Z95.5 Presence of coronary angioplasty implant and graft; Z90.710 Acquired absence of both cervix and uterus; Z90.49 Acquired absence of other specified parts of digestive tract; Z98.890 Other specified postprocedural states; Z98.42 Cataract extraction status, left eye; Z98.41 Cataract extraction status, right eye; Z88.1 Allergy status to other antibiotic agents
CPT/HCPCS: 36415; 73501; 80053; 81003; 82728; 83540; 83550; 85025; 86850; 86900; 86901; 88300

== ENCOUNTER 2021-05-17 12:59 | Observation (INO) | payer MEDICARE ==
[2021-05-17] MEDS ORDERED: ASPIRIN 81 MG PO STA (13:16)
[2021-05-17] MEDS ORDERED: NITROGLYCERIN SL TABS 0.4 MG TAB SUBLINGUAL STA (13:16)
[2021-05-17] MEDS ORDERED: SODIUM CHLORIDE 0.9% 500 ML 500 ML IV STA (13:16)
[2021-05-17] MEDS ORDERED: NITROGLYCERIN OINT 1 INCH/GM PACKET TOPICAL STA (13:16)
--- NOTE | 2021-05-17 13:20 | ED ---
General Adult HPI - General Chief complaint: Arrhythmia/Palpitations Stated complaint: Abnormal EKG/Back Pain Time Seen by Provider: 05/17/21 13:05 Source: patient, RN notes reviewed, old records reviewed Mode of arrival: wheelchair Limitations: no limitations - History of Present Illness Initial comments: This is a 89-year-old female who presents emergency Department stating that last night while sitting in a chair she started having back pain across her shoulder blades. Patient states the last time she had shoulder pain like this in the back she had a heart attack and needed 2 stents. Patient states this feels the same. Patient states last time she had no chest pain she has no chest pain this time. Patient denies any difficulty breathing shortness breath per patient denies any palpitations. Patient states she's had a cough for 2 days but no real shortness of breath. Patient denies any fever or chills. Patient denies getting any COVID vaccine. Patient denies abdominal pain patient denies nausea vomiting diarrhea. Patient denies any recent injury or fall. Patient states swelling to the legs or calf tenderness. Patient states movement or twisting does not make the pain any worse. - Related Data Home Medications Medication Instructions Recorded Confirmed Levothyroxine Sodium [Synthroid] 100 mcg PO DAILY 05/17/15 05/17/21 Aspirin [Adult Low Dose Aspirin EC] 81 mg PO DAILY PRN 05/17/21 05/17/21 amLODIPine [Norvasc] 5 mg PO DAILY 05/17/21 05/17/21 Allergies Allergy/AdvReac Type Severity Reaction Status Date / Time levofloxacin Allergy Unknown Verified 05/17/21 14:00 Review of Systems ROS Statement: Those systems with pertinent positive or pertinent negative responses have been documented in the HPI. ROS Other: All systems not noted in ROS Statement are negative. Past Medical History Past Medical History: Hyperlipidemia, Hypertension, Myocardial Infarction ([place]), Thyroid Disorder Last Myocardial Infarction Date:: 2011 History of Any Multi-Drug Resistant Organisms: None Reported Past Surgical History: Appendectomy, Heart Catheterization With Stent, Hystere ctomy, Orthopedic Surgery, Tonsillectomy Additional Past Surgical History / Comment(s): STENTS X2, ALEC CAT, GANGLION CYST LEFT FOOT Past Anesthesia/Blood Transfusion Reactions: No Reported Reaction Date of Last Stent Placement:: 2011 Past Psychological History: No Psychological Hx Reported Past Alcohol Use History: None Reported Past Drug Use History: None Reported - Past Family History Mother Family Medical History: No Reported History General Exam - General Exam Comments Initial Comments: GENERAL: Patient is well-developed and well-nourished. Patient is nontoxic and well- hydrated and is in mild distress. ENT: Neck is soft and supple. No significant lymphadenopathy is noted. Oropharynx is clear. Moist mucous membranes. Neck has full range of motion without eliciting any pain. EYES: The sclera were anicteric and conjunctiva were pink and moist. Extraocular movements were intact and pupils were equal round and reactive to light. Eyelids were unremarkable. PULMONARY: Unlabored respirations. Good breath sounds bilaterally. No audible rales rhonchi or wheezing was noted. CARDIOVASCULAR: There is a regular rate and rhythm without any murmurs gallops or rubs. ABDOMEN: Soft and nontender with normal bowel sounds. SKIN: Skin is clear with no lesions or rashes and otherwise unremarkable. NEUROLOGIC: Patient is alert and oriented x3. Cranial nerves II through XII are grossly intact. Motor and sensory are also intact. Normal speech, volume and content. Symmetrical smile. MUSCULOSKELETAL: Normal extremities with adequate strength and full range of motion. No lower extremity swelling or edema. No calf tenderness. LYMPHATICS: No significant lymphadenopathy is noted PSYCHIATRIC: Normal psychiatric evaluation. Limitations: no limitations Course Vital Signs 05/17/21 13:05 Temperature 98.2 F Pulse Rate 82 Respiratory 18 Rate Blood Pressure 138/78 O2 Sat by Pulse 97 Oximetry Medical Decision Making - Medical Decision Making EKG shows sinus rhythm at 82 bpm with occasional PVC, OK interval is 138 QRSs 80 QT interval 384 QTC is 448. Patient's EKG shows no ST segment elevation or depression. Patient's test came back positive for COVID. Chest x-ray showed no obvious pneumonia. I started the patient on the monoclonal antibodies. Patient will be admitted for 23 observation because the chest pain was so reminiscent of her previous heart attack. I spoke with the [facility] agreed to admit the patient admitted the patient wrote admitting orders I consult cardiology and pulmonology. Patient did indicate after the nitroglycerin her back pain felt better. - Lab Data Result diagrams: 05/17/21 13:16 05/17/21 13:16 Lab Results 05/17/21 05/17/21 05/17/21 Range/Units 13:16 13:16 13:16 WBC 8.1 (3.8-10.6) k/uL RBC 4.34 (3.80-5.40) m/uL Hgb 14.1 (11.4-16.0) gm/dL Hct 41.1 (34.0-46.0) % MCV 94.7 (80.0-100.0) fL MCH 32.6 (25.0-35.0) pg MCHC 34.4 (31.0-37.0) g/dL RDW 13.3 (11.5-15.5) % Plt Count 201 (150-450) k/uL MPV 8.5 Neutrophils % 69 % Lymphocytes % 16 % Monocytes % 10 % Eosinophils % 1 % Basophils % 1 % Neutrophils # 5.6 (1.3-7.7) k/uL Lymphocytes # 1.3 (1.0-4.8) k/uL Monocytes # 0.8 (0-1.0) k/uL Eosinophils # 0.1 (0-0.7) k/uL Basophils # 0.1 (0-0.2) k/uL PT 9.8 (9.0-12.0) sec INR 0.9 (<1.2) APTT 22.1 (22.0-30.0) sec D-Dimer 0.83 H (<0.60) mg/L FEU Sodium 135 L (137-145) mmol/L Potassium 4.2 (3.5-5.1) mmol/L Chloride 104 (98-107) mmol/L Carbon Dioxide 22 (22-30) mmol/L Anion Gap 9 mmol/L BUN 20 H (7-17) mg/dL Creatinine 0.78 (0.52-1.04) mg/dL Est GFR (CKD-EPI)AfAm 78 (>60 ml/min/1.73 sqM) Est GFR (CKD-EPI)NonAf 68 (>60 ml/min/1.73 sqM) Glucose 104 H (74-99) mg/dL Calcium 9.4 (8.4-10.2) mg/dL Magnesium 1.9 (1.6-2.3) mg/dL Total Bilirubin 0.4 (0.2-1.3) mg/dL AST 32 (14-36) U/L ALT 19 (4-34) U/L Alkaline Phosphatase 103 (38-126) U/L Troponin I (0.000-0.034) ng/mL Total Protein 7.0 (6.3-8.2) g/dL Albumin 4.2 (3.5-5.0) g/dL Coronavirus (PCR) (Not Detectd) 05/17/21 05/17/21 Range/Units 13:16 13:16 WBC (3.8-10.6) k/uL RBC (3.80-5.40) m/uL Hgb (11.4-16.0) gm/dL Hct (34.0-46.0) % MCV (80.0-100.0) fL MCH (25.0-35.0) pg MCHC (31.0-37.0) g/dL RDW (11.5-15.5) % Plt Count (150-450) k/uL MPV Neutrophils % % Lymphocytes % % Monocytes % % Eosinophils % % Basophils % % Neutrophils # (1.3-7.7) k/uL Lymphocytes # (1.0-4.8) k/uL Monocytes # (0-1.0) k/uL Eosinophils # (0-0.7) k/uL Basophils # (0-0.2) k/uL PT (9.0-12.0) sec INR (<1.2) APTT (22.0-30.0) sec D-Dimer (<0.60) mg/L FEU Sodium (137-145) mmol/L Potassium (3.5-5.1) mmol/L Chloride (98-107) mmol/L Carbon Dioxide (22-30) mmol/L Anion Gap mmol/L BUN (7-17) mg/dL Creatinine (0.52-1.04) mg/dL Est GFR (CKD-EPI)AfAm (>60 ml/min/1.73 sqM) Est GFR (CKD-EPI)NonAf (>60 ml/min/1.73 sqM) Glucose (74-99) mg/dL Calcium (8.4-10.2) mg/dL Magnesium (1.6-2.3) mg/dL Total Bilirubin (0.2-1.3) mg/dL AST (14-36) U/L ALT (4-34) U/L Alkaline Phosphatase (38-126) U/L Troponin I <0.012 (0.000-0.034) ng/mL Total Protein (6.3-8.2) g/dL Albumin (3.5-5.0) g/dL Coronavirus (PCR) Detected A (Not Detectd) Critical Care Time Critical Care Time: Yes Total Critical Care Time: 35 Disposition Clinical Impression: COVID, Atypical angina Disposition: ADMITTED IP TO THIS [facility] Referrals: Nonstaff,Physician [Primary Care Provider] - 1-2 days Time of Disposition: 14:41
[2021-05-17 13:34] LABS: Basophils # (A) 0.1 k/uL (0-0.2); Basophils % (A) 1 %; Eosinophils # (A) 0.1 k/uL (0-0.7); Eosinophils % (A) 1 %; HCT 41.1 % (34.0-46.0); HGB 14.1 gm/dL (11.4-16.0); Lymphocytes # (A) 1.3 k/uL (1.0-4.8); Lymphocytes % (A) 16 %; MCH 32.6 pg (25.0-35.0); MCHC 34.4 g/dL (31.0-37.0); MCV 94.7 fL (80.0-100.0); Mean Platelet Volume 8.5; Monocytes # (A) 0.8 k/uL (0-1.0); Monocytes % (A) 10 %; Neutrophils # (A) 5.6 k/uL (1.3-7.7); Neutrophils % (A) 69 %; Platelet Count 201 k/uL (150-450); RBC 4.34 m/uL (3.80-5.40); RDW 13.3 % (11.5-15.5); WBC 8.1 k/uL (3.8-10.6)
--- NOTE | 2021-05-17 13:43 | XR ---
EXAMINATION TYPE: XR chest 2V DATE OF EXAM: 05/17/2021 COMPARISON: Prior chest x-ray February 05, 2019 HISTORY: Chest pain. Abnormal EKG. TECHNIQUE: Frontal and lateral views of the chest are obtained. FINDINGS: There are chronic parenchymal changes bilaterally without new suspicious focal air space o pacity, pleural effusion, or pneumothorax seen. Diminished inspiration noted. The cardiac silhouette size is mildly enlarged with atherosclerotic change aortic knob. The osseous structures are demine ralized. IMPRESSION: Chronic changes and mild cardiomegaly without acute pulmonary process.
[2021-05-17 13:50] LABS: Albumin 4.2 g/dL (3.5-5.0); Calcium 9.4 mg/dL (8.4-10.2); Magnesium 1.9 mg/dL (1.6-2.3); Potassium 4.2 mmol/L (3.5-5.1); Total Bilirubin 0.4 mg/dL (0.2-1.3)
[2021-05-17 14:09] LABS: INR 0.9 (<1.2); Partial Thromboplastin Time 22.1 sec (22.0-30.0); Prothrombin Time 9.8 sec (9.0-12.0)
[2021-05-17] MEDS ORDERED: NITROGLYCERIN SL TABS 0.4 MG TAB SUBLINGUAL PRN (14:42)
[2021-05-17] MEDS ORDERED: CASIRIVIMAB/IMDEVIMAB (EUA) 1,200 MG in SODIUM CHLORIDE 0.9% 100 ML IVPB ONE (15:00)
[2021-05-17] MEDS ORDERED: SODIUM CHLORIDE 0.9% 50 ML IVPB ONE (15:30)
[2021-05-17] MEDS ORDERED: NITROGLYCERIN OINT 1 INCH/GM PACKET TOPICAL SCH (18:00)
[2021-05-17] MEDS ORDERED: ASPIRIN 81 MG PO PRN (20:08)
[2021-05-17] MEDS ORDERED: ONDANSETRON 4 MG/2 ML VIAL IVP PRN (20:19)
[2021-05-17] MEDS: PANTOPRAZOLE 40 MG/10 ML VIAL IVP SCH (20:51)
[2021-05-17] MEDS: SODIUM CHLORIDE 0.9% 1,000 ML IV SCH (20:52)
[2021-05-17] MEDS: NITROGLYCERIN OINT 1 INCH/GM PACKET TOPICAL SCH (20:52)
[2021-05-17] MEDS: ACETAMINOPHEN TAB 325 MG TAB PO PRN (20:52)
[2021-05-17 21:30] LABS: Basophils # (A) 0.1 k/uL (0-0.2); Basophils % (A) 1 %; Eosinophils # (A) 0.1 k/uL (0-0.7); Eosinophils % (A) 1 %; Lymphocytes # (A) 1.3 k/uL (1.0-4.8); Lymphocytes % (A) 17 %; MCHC 33.4 g/dL (31.0-37.0); MCV 95.8 fL (80.0-100.0); Mean Platelet Volume 10.3; Monocytes # (A) 0.8 k/uL (0-1.0); Monocytes % (A) 10 %; Neutrophils # (A) 5.3 k/uL (1.3-7.7); Neutrophils % (A) 70 %; Platelet Count 190 k/uL (150-450); RBC 4.38 m/uL (3.80-5.40); RDW 13.2 % (11.5-15.5); WBC 7.6 k/uL (3.8-10.6)
[2021-05-17 21:34] LABS: ALT 19 U/L (4-34); AST 33 U/L (14-36); African American GFR (CKD) 75 (>60 ml/min/1.73 sqM); Albumin 4.1 g/dL (3.5-5.0); Albumin/Globulin Ratio 1.4; Alkaline Phosphatase 110 U/L (38-126); Anion Gap 9 mmol/L; Blood Urea Nitrogen 20 mg/dL (7-17); C Reactive Protein 1.2 mg/dL (<1.0); Calcium 9.4 mg/dL (8.4-10.2); Carbon Dioxide 21 mmol/L (22-30); Chloride 104 mmol/L (98-107); Globulin 2.9 g/dL; Glucose 105 mg/dL (74-99); LDH 365 U/L (313-618); Non-African American GFR(CKD) 65 (>60 ml/min/1.73 sqM); Potassium 4.2 mmol/L (3.5-5.1); Sodium 134 mmol/L (137-145); Total Bilirubin 0.4 mg/dL (0.2-1.3)
--- NOTE | 2021-05-17 22:26 | CT ---
EXAMINATION TYPE: CT angio chest contrast and with 3-D reconstruction imaging DATE OF EXAM: 05/17/2021 8:53 PM COMPARISON: Chest radiograph 05/17/2021 HISTORY: Chest pain. Covid CT DLP: 483.80 mGycm Automated exposure control for dose reduction was used. CONTRAST: CTA scan of the thorax is performed with IV Contrast, patient injected with 100 mL of Isovu e 370, pulmonary embolism protocol. . FINDINGS: LUNGS: Marked emphysematous changes are seen, with moderate widespread cylindrical bronchiectasis. Th ere are no acute pulmonary findings. Pleural spaces: Negative. MEDIASTINUM: There is satisfactory enhancement of the pulmonary artery and its branches, with no CT e vidence for pulmonary embolism. No acute aortic findings. Coronary calcifications noted. The heart an d pericardial examination is unremarkable as seen. Mildly confluent right hilar lymph noted, nonspeci fic in likely reactive. OTHER: No additional significant abnormality is seen. IMPRESSION: NO ACUTE CT PROCESS. INCIDENTAL: CORONARY CALCIFICATIONS, ADVANCED EMPHYSEMA, BRONCHIECTASIS.
[2021-05-17 22:39] LABS: Erythrocyte Sedimentation Rate 29 mm/hr (0-20)
[2021-05-18] MEDS: NITROGLYCERIN OINT 1 INCH/GM PACKET TOPICAL SCH ×2 (04:19→09:23)
[2021-05-18] MEDS: LEVOTHYROXINE 100 MCG TAB PO SCH (05:32)
[2021-05-18] MEDS: ACETAMINOPHEN TAB 325 MG TAB PO PRN (05:33)
--- NOTE | 2021-05-18 05:59 | HP ---
HISTORY AND PHYSICAL CHIEF COMPLAINT: Weakness, back pain, some shortness of breath and chest pains. HISTORY OF PRESENT ILLNESS: This 89-year-old woman with a past medical history of hypertension, hyperlipidemia, history of myocardial infarction, hypothyroidism, history of CAD/stent was having multiple symptomatology including back pain, shortness of breath, cough for the last 2 days. The patient came to [facility] and Covid 19 was negative. Troponins are negative. EKG showed S1 q.3h T3 pattern. The patient admitted for further evaluation and treatment. The patient also had some vomiting and some coffee- grounds emesis after admission. There is no history of any rigors, chills, headache, loss of consciousness, seizures. The patient has not taken the Covid vaccine apparently. PAST MEDICAL HISTORY: Hypertension, hyperlipidemia, myocardial infarction, hypothyroid, hip replacement, CAD stent. MEDICATION: Home medications are Norvasc, Synthroid, aspirin. ALLERGIES: LEVAQUIN. FAMILY HISTORY: No history of heart disease or strokes in the family. SOCIAL HISTORY: Previous history of smoking. No history of alcohol intake. REVIEW OF SYSTEMS: ENT: No diminished vision. No diminished hearing. CARDIOVASCULAR as mentioned earlier. RESPIRATORY: As mentioned earlier. GI: As mentioned earlier. no dysuria. NERVOUS SYSTEM: No numbness, weakness. ALLERGY/IMMUNOLOGY: No asthma or hayfever. MUSCULOSKELETAL: As mentioned earlier. HEMATOLOGY: No history of anemia. ENDOCRINE: No history of diabetes or hypothyroidism. CONSTITUTIONAL: As mentioned earlier. DERMATOLOGY: Negative. RHEUMATOLOGY: Negative. PSYCHIATRIC: As mentioned earlier. PHYSICAL EXAMINATION: Alert and oriented x3. Pulse is 84. Blood pressure 144/55, respirations 16, temperature 101 degrees, pulse ox 98% on room air. HEENT: Conjunctivae normal. Oral mucosa moist. NECK is no jugular venous distention. No carotid bruit. No lymph node enlargement. CARDIOVASCULAR systems: S1, S2 muffled. RESPIRATIONS: A few scattered rhonchi. ABDOMEN: Soft, nontender. No mass. LEGS are no edema. No swelling. NERVOUS SYSTEM: No focal deficits. SKIN: No ulcer, no rash and no bleeding. JOINTS: No active deforming arthropathy. LABS: CBC within normal limits. D-dimer 0.83 and sodium is 135, glucose is 104. Covid 19 is positive. The EKG shows PACs and PVCs, reviewed personally by me. The chest x- ray was also reviewed personally by me showed some increased reticular nodular lesions bilaterally suggestive of interstitial pneumonia. CT scan of the chest is pending. ASSESSMENT: 1. Acute COVID-19 infection with acute Covid 19 interstitial pneumonia. 2. Chest pain, rule out coronary artery disease. 3. Vomiting, rule out upper gastrointestinal bleeding. 4. Hyponatremia. 5. Hypertension. 6. Hyperlipidemia. 7. History of myocardial infarction. 8. History of hypothyroidism. 9. History of hip replacement. 10.History of coronary artery disease/stent. 11.History of hysterectomy. 12.History of degenerative joint disease. 13.Remote history of nicotine dependence. 14.Obesity with body mass of 30.6. RECOMMENDATIONS AND DISCUSSION: In this 89-year-old woman who presented with multiple complex medical issues, we will monitor the patient closely. Continue the current medications, and symptomatic treatment. I recommend CT angio of the chest to rule out possible pulmonary embolism. The patient has received in the ER. I recommended consultation with Dr. Damian for possible Remdesivir. Otherwise repeat labs will be ordered. Cardiology is also being consulted. Prognosis guarded because of multiple complex medical issues. Further recommendations to follow. Dr. Pleitez will be consulted for the pneumonia also. Serum procalcitonin and other inflammatory markers of Covid 19 also will be ordered. Prognosis guarded. Further recommendations to follow. Discussed with the patient. MMODL / IJN: [id number] / [id number]
[2021-05-18] MEDS: amLODIPine 5 MG TAB PO SCH ×2 (08:11→09:22)
[2021-05-18] MEDS ORDERED: ASPIRIN 325 MG TAB PO SCH (09:00)
[2021-05-18 09:13] LABS: Basophils # (A) 0.04 X 10*3/uL (0.00-0.10); Basophils % (A) 0.4 %; Eosinophils # (A) 0 X 10*3/uL (0.04-0.35); Eosinophils % (A) 0 %; HGB 12.3 g/dL (12.0-15.0); Lymphocytes # (A) 2.42 X 10*3/uL (0.90-5.00); Lymphocytes % (A) 25.9 %; MCH 30.4 pg (27.0-32.0); MCHC 32.4 g/dL (32.0-37.0); MCV 94.1 fL (80.0-97.0); Mean Platelet Volume 11.4 fL (9.5-12.2); Monocytes # (A) 0.95 X 10*3/uL (0.20-1.00); Monocytes % (A) 10.1 %; Neutrophils # (A) 5.92 X 10*3/uL (1.80-7.70); Neutrophils % (A) 63.3 %; Platelet Count 174 X 10*3/uL (140-440); RBC 4.04 X 10*6/uL (4.10-5.20); RDW 14.9 % (11.5-14.5); WBC 9.36 X 10*3/uL (4.50-10.00)
[2021-05-18] MEDS: PANTOPRAZOLE 40 MG/10 ML VIAL IVP SCH ×2 (09:18→20:05)
--- NOTE | 2021-05-18 11:26 | P.CRDCN ---
History of Present Illness History of present illness: HISTORY OF PRESENTING ILLNESS This is a pleasant 89-year-old female past medical history significant for coronary artery disease status post PCI in 2006, hypertension, dyslipidemia and hypothyroidism. She follows in the office with Dr. Bullard. We have been asked to see in consultation for chest pain. She presented to the hospital with symptoms of mid scapular discomfort. She states this pain did feel similar to how she's felt in 2006 when she needed stenting. She also developed a headache. She denies any associated shortness of breath, cough, dizziness or palpitations. She has tested positive for COVID-19. She is currently chest pain-free and resting in bed comfortably in no acute distress. Most recent echocardiogram obtained in 2019 revealed preserved LV systolic function with ejection fraction 55% with mild mitral regurgitation. DIAGNOSTICS EKG reveals sinus mechanism heart rate of 82 with PVCs and sinus arrhythmia. Telemetry tracings indicate is rhythm. Chest xray chronic changes with no acute cardiopulmonary process. CTA is negative for an acute process. Evidence of coronary calcifications and advanced emphysema noted. Laboratory reviewed, of UBC 9.3, hemoglobin 12.3, platelets 174, sedimentation rate 29, d-dimer 0.83, sodium 134, potassium 4.2, creatinine 0.81, cardiac enzymes negative 3, magnesium 1.9, and she proBNP 2110. Current cardiac medications include aspirin 81 mg daily and amlodipine 5 mg daily. REVIEW OF SYSTEMS At the time of my exam: CONSTITUTIONAL: Denies fever or chills. CARDIOVASCULAR: Denies chest pain, shortness of breath, orthopnea, PND or palpitations. RESPIRATORY: Denies cough. GASTROINTESTINAL: Denies abdominal pain, diarrhea, constipation, nausea or vomiting. MUSCULOSKELETAL: Denies myalgias. NEUROLOGIC: Denies numbness, tingling, headache or weakness. ENDOCRINE: Denies fatigue, weight change, polydipsia or polyurina. GENITOURINARY: Denies burning, hematuria or urgency with micturation. HEMATOLOGIC: Denies history of anemia or bleeding. PHYSICAL EXAMINATION Blood pressure 102/61 heart rate 66 afebrile and maintaining oxygen saturation on room air. CONSTITUTIONAL: No apparent distress. HEENT: Head is normocephalic. Pupils are equal, round. Sclerae anicteric. Mucous membranes of the mouth are moist. No JVD. No carotid bruit. NEUROLOGIC EXAMINATION: Patient is awake, alert and oriented x3. ASSESSMENT Chest pain, atypical Febrile illness COVID-19 History of coronary artery disease status post PCI 2006 Hypertension Dyslipidemia PLAN An acute coronary event has been ruled out. Echocardiogram has been ordered and will be reviewed. Decrease aspirin to 81 mg daily. She has declined beta blockers or statins in the past due to intolerance and would prefer not to take them now either. Ongoing management and treatment of acute COVID infection. No further cardiac testing at this time, we will follow along as needed. Follow up with Dr. Bullard upon discharge. Thank you kindly for this consultation. Nurse Practitioner note has been reviewed, I agree with a documented findings and plan of care. Patient was seen and examined. Past Medical History Past Medical History: Hyperlipidemia, Hypertension, Myocardial Infarction ([place]), Thyroid Disorder Additional Past Medical History / Comment(s): hip replacement Last Myocardial Infarction Date:: 2011 History of Any Multi-Drug Resistant Organisms: None Reported Past Surgical History: Appendectomy, Heart Catheterization With Stent, Hysterectomy, Orthopedic Surgery, Tonsillectomy Additional Past Surgical History / Comment(s): STENTS X2, ALEC CAT, GANGLION CYST LEFT FOOT Past Anesthesia/Blood Transfusion Reactions: No Reported Reaction Date of Last Stent Placement:: 2011 Past Psychological History: No Psychological Hx Reported Smoking Status: Former smoker Past Alcohol Use History: None Reported Additional Past Alcohol Use History / Comment(s): QUIT SMOKING 2011, SMOKED 1/2 PPD FROM AGE 22 Past Drug Use History: None Reported - Past Family History Mother Family Medical History: No Reported History Medications and Allergies Home Medications Medication Instructions Recorded Confirmed Type Levothyroxine Sodium [Synthroid] 100 mcg PO DAILY 05/17/15 05/17/21 History Aspirin [Adult Low Dose Aspirin EC] 81 mg PO DAILY PRN 05/17/21 05/17/21 History amLODIPine [Norvasc] 5 mg PO DAILY 05/17/21 05/17/21 History Allergies Allergy/AdvReac Type Severity Reaction Status Date / Time levofloxacin Allergy Unknown Verified 05/17/21 14:00 Physical Exam Vitals: Vital Signs Temp Pulse Pulse Resp BP BP BP 05/18/21 07:00 98.2 F 66 16 102/61 05/18/21 01:59 98.4 F 68 18 99/56 05/17/21 20:00 84 16 05/17/21 19:54 101 F H 84 16 144/55 05/17/21 18:02 98.2 F 79 14 148/82 05/17/21 17:56 98.2 F 79 14 148/82 05/17/21 16:59 97.4 F L 78 18 140/62 05/17/21 15:22 71 18 140/58 05/17/21 13:05 98.2 F 82 18 138/78 Pulse Ox 05/18/21 07:00 93 L 05/18/21 01:59 92 L 05/17/21 20:00 05/17/21 19:54 96 05/17/21 18:02 96 05/17/21 17:56 93 L 05/17/21 16:59 96 05/17/21 15:22 95 05/17/21 13:05 97 Intake and Output 05/17/21 05/18/21 05/18/21 22:59 06:59 14:59 Other: Voiding Method Toilet Toilet # Voids 0 1 Weight 83.461 kg Results 05/18/21 05:31 05/17/21 20:21 Cardiac Enzymes 05/17/21 05/17/21 05/17/21 Range/Units 13:16 13:16 16:30 AST 32 (14-36) U/L Lactate Dehydrogenase (313-618) U/L Troponin I <0.012 <0.012 (0.000-0.034) ng/mL 05/17/21 05/17/21 Range/Units 19:05 20:21 AST 33 (14-36) U/L Lactate Dehydrogenase 365 (313-618) U/L Troponin I <0.012 (0.000-0.034) ng/mL Coagulation 05/17/21 Range/Units 13:16 PT 9.8 (9.0-12.0) sec APTT 22.1 (22.0-30.0) sec CBC 05/17/21 05/17/21 Range/Units 13:16 20:21 WBC 8.1 7.6 (3.8-10.6) k/uL RBC 4.34 4.38 (3.80-5.40) m/uL Hgb 14.1 14.0 (11.4-16.0) gm/dL Hct 41.1 42.0 (34.0-46.0) % Plt Count 201 190 (150-450) k/uL Comprehensive Metabolic Panel 05/17/21 05/17/21 Range/Units 13:16 20:21 Sodium 135 L 134 L (137-145) mmol/L Potassium 4.2 4.2 (3.5-5.1) mmol/L Chloride 104 104 (98-107) mmol/L Carbon Dioxide 22 21 L (22-30) mmol/L BUN 20 H 20 H (7-17) mg/dL Creatinine 0.78 0.81 (0.52-1.04) mg/dL Glucose 104 H 105 H (74-99) mg/dL Calcium 9.4 9.4 (8.4-10.2) mg/dL AST 32 33 (14-36) U/L ALT 19 19 (4-34) U/L Alkaline Phosphatase 103 110 (38-126) U/L Total Protein 7.0 7.0 (6.3-8.2) g/dL Albumin 4.2 4.1 (3.5-5.0) g/dL Current Medications Generic Name Dose Route Start Last Admin Trade Name Freq PRN Reason Stop Dose Admin Acetaminophen 650 mg 05/17/21 20:08 05/18/21 05:33 Acetaminophen Tab 325 Mg Tab PO 650 mg Q6HR PRN Administration Fever and/ or Pain Amlodipine Besylate 5 mg 05/18/21 09:00 05/18/21 08:11 Amlodipine 5 Mg Tab PO Not Given DAILY [facility] Aspirin 325 mg 05/18/21 09:00 Aspirin 325 Mg Tab PO DAILY [facility] Sodium Chloride 1,000 mls @ 75 mls/hr 05/17/21 20:30 05/17/21 20:52 Saline 0.9% IV 75 mls/hr .[id number] HARLEY Administration Levothyroxine Sodium 100 mcg 05/18/21 06:30 05/18/21 05:32 Levothyroxine 100 Mcg Tab PO 100 mcg DAILY@0630 [facility] Administration Nitroglycerin 0.4 mg 05/17/21 14:42 Nitroglycerin Sl Tabs 0.4 Mg Tab SUBLINGUAL Q5M PRN Chest Pain Nitroglycerin 1 inch 05/17/21 21:00 05/18/21 04:19 Nitroglycerin Oint 1 Inch/Gm Packet TOPICAL Not Given Q6H [facility] Ondansetron HCl 4 mg 05/17/21 20:19 05/17/21 20:51 Ondansetron 4 Mg/2 Ml Vial IVP 4 mg Q6HR PRN Administration Nausea And Vomiting Pantoprazole Sodium 40 mg 05/17/21 21:00 05/17/21 20:51 Pantoprazole 40 Mg/10 Ml Vial IVP 40 mg BID HARLEY Administration Intake and Output 05/17/21 05/18/21 05/18/21 22:59 06:59 14:59 Other: Voiding Method Toilet Toilet # Voids 0 1 Weight 83.461 kg 05/17/21 20:21 05/17/21 20:21
--- NOTE | 2021-05-18 11:35 | P.CNPUL ---
History of Present Illness Consult date: 05/18/21 Requesting physician: Mora Davidson Reason for consult: other (COVID-19 infection) Chief complaint: Pain between her shoulder blades History of present illness: This is a very pleasant 89-year-old female patient with known history of coronary artery disease with previous stent placements, retention, hyperlipidemia, hypothyroidism. Yesterday she went to an outpatient clinic in [place] with complaints of pain between her shoulder blades. EKG was abnormal and she was referred here to the emergency room. EKG here revealed no significant ST or T wave abnormalities. Chest x-ray revealed chronic changes of mild cardiomegaly but no acute pulmonary process. CT angiogram revealed no e vidence of pulmonary embolism. No acute pulmonary process. There was some incidental findings of coronary calcifications, advanced emphysema, bronchiectasis. White count 9.3. Hemoglobin 12.3. Lymphocytes 2.42. D-dimer 0.83. Sodium 134. Potassium 4.2. Creatinine 0.81. ProBNP 2110. Troponins negative 3. [place] virus by PCR detected. She did have a T-max last night of 101.0. She is maintaining O2 saturations in the mid 90s on room air. She is seen today in consultation on the regular medical floor. She is currently sitting up in bed. Awake and alert in no acute distress. No shortness of breath, cough or congestion. No hemoptysis. Previous history of chills. No loss of appetite. No loss of taste or smell. She is not vaccinated against the coronavirus. Review of Systems REVIEW OF SYSTEMS: CONSTITUTIONAL: Denies any recent significant weight loss or weight gain. EYES: Denies change in vision. EARS, NOSE, MOUTH, THROAT: Denies headaches, denies sore throat. CARDIOVASCULAR: Positive for pain between her shoulder blades and chest pain, no palpitations or syncopal episodes. RESPIRATORY: Denies shortness of breath, cough, congestion or hemoptysis. GASTROINTESTINAL: Denies change in appetite, denies abdominal pain GENITOURINARY: Denies hematuria, denies infections. MUSKULOSKELETAL: Denies pain, denies swelling. INTEGUMENTARY: Denies rash, denies eczema. NEUROLOGICAL: Denies recent memory loss, no recent seizure activity. PSYCHIATRIC: Denies anxiety, denies depression. HEMATOLOGIC/LYMPHATIC: Denies anemia, denies enlarged lymph nodes. Past Medical History Past Medical History: Hyperlipidemia, Hypertension, Myocardial Infarction ([place]), Thyroid Disorder Additional Past Medical History / Comment(s): hip replacement Last Myocardial Infarction Date:: 2011 History of Any Multi-Drug Resistant Organisms: None Reported Past Surgical History: Appendectomy, Heart Catheterization With Stent, Hystere ctomy, Orthopedic Surgery, Tonsillectomy Additional Past Surgical History / Comment(s): STENTS X2, ALEC CAT, GANGLION CYST LEFT FOOT Past Anesthesia/Blood Transfusion Reactions: No Reported Reaction Date of Last Stent Placement:: 2011 Past Psychological History: No Psychological Hx Reported Smoking Status: Former smoker Past Alcohol Use History: None Reported Additional Past Alcohol Use History / Comment(s): QUIT SMOKING 2011, SMOKED 1/2 PPD FROM AGE 22 Past Drug Use History: None Reported - Past Family History Mother Family Medical History: No Reported History Medications and Allergies Home Medications Medication Instructions Recorded Confirmed Type Levothyroxine Sodium [Synthroid] 100 mcg PO DAILY 05/17/15 05/17/21 History Aspirin [Adult Low Dose Aspirin EC] 81 mg PO DAILY PRN 05/17/21 05/17/21 History amLODIPine [Norvasc] 5 mg PO DAILY 05/17/21 05/17/21 History Allergies Allergy/AdvReac Type Severity Reaction Status Date / Time levofloxacin Allergy Unknown Verified 05/17/21 14:00 Physical Exam Vitals: Vital Signs Temp Pulse Pulse Resp BP BP BP 05/18/21 07:00 98.2 F 66 16 102/61 05/18/21 01:59 98.4 F 68 18 99/56 05/17/21 20:00 84 16 05/17/21 19:54 101 F H 84 16 144/55 05/17/21 18:02 98.2 F 79 14 148/82 05/17/21 17:56 98.2 F 79 14 148/82 05/17/21 16:59 97.4 F L 78 18 140/62 05/17/21 15:22 71 18 140/58 05/17/21 13:05 98.2 F 82 18 138/78 Pulse Ox 05/18/21 07:00 93 L 05/18/21 01:59 92 L 05/17/21 20:00 05/17/21 19:54 96 05/17/21 18:02 96 05/17/21 17:56 93 L 05/17/21 16:59 96 05/17/21 15:22 95 05/17/21 13:05 97 Intake and Output 05/17/21 05/18/21 05/18/21 22:59 06:59 14:59 Other: Voiding Method Toilet Toilet # Voids 0 1 Weight 83.461 kg GENERAL EXAM: Alert, active, very pleasant 89-year-old female patient, on room air, comfortable in no apparent distress. HEAD: Normocephalic. EYES: Normal reaction of pupils, equal size. NOSE: Clear with pink turbinates. THROAT: No erythema or exudates. NECK: No masses, no JVD. CHEST: No chest wall deformity. LUNGS: Equal air entry with no crackles, wheeze, rhonchi or dullness. CVS: S1 and S2 normal with no audible murmur, regular rhythm. ABDOMEN: No hepatosplenomegaly, normal bowel sounds, no guarding or rigidity. SPINE: No scoliosis or deformity SKIN: No rashes CENTRAL NERVOUS SYSTEM: No focal deficits, tone is normal in all 4 extremities. EXTREMITIES: There is no peripheral edema. No clubbing, no cyanosis. Peripheral pulses are intact. Results - Laboratory Findings CBC and BMP: 05/18/21 05:31 05/17/21 20:21 PT/INR, D-dimer PT 9.8 sec (9.0-12.0) 05/17/21 13:16 INR 0.9 (<1.2) 05/17/21 13:16 D-Dimer 0.83 mg/L FEU (<0.60) H 05/17/21 13:16 Abnormal lab findings: Abnormal Labs 05/17/21 05/17/21 05/17/21 13:16 13:16 13:16 RBC RDW Eosinophils # ESR D-Dimer 0.83 H Sodium 135 L Carbon Dioxide BUN 20 H Glucose 104 H C-Reactive Protein Coronavirus (PCR) Detected A 05/17/21 05/17/21 05/18/21 20:21 20:21 05:31 RBC RDW Eosinophils # ESR 29 H D-Dimer Sodium 134 L Carbon Dioxide 21 L BUN 20 H Glucose 105 H C-Reactive Protein 1.2 H 2.0 H Coronavirus (PCR) 05/18/21 05:31 RBC 4.04 L RDW 14.9 H Eosinophils # 0 L ESR D-Dimer Sodium Carbon Dioxide BUN Glucose C-Reactive Protein Coronavirus (PCR) - Diagnostic Findings Chest x-ray: image reviewed CT scan - chest: image reviewed Assessment and Plan Assessment: 1 Chest pain with pain between the shoulder blades, acute coronary syndrome ruled out 2 Coronary artery disease and previous stent placement x 2 3 Positive COVID-19 infection without pulmonary symptoms received monoclonal antibodies on 05/17/2021 4 Hypertension 5 Hyperlipidemia 6 Hypothyroidism Plan: The patient was seen and evaluated by Dr. Pleitez Chest x-ray, CAT scan, labs reviewed She is cleared for discharge from the pulmonary standpoint Follow-up with her PCP, service delivery director in the outpatient setting I, the cosigning physician, performed a history & physical examination of the patient. Lungs sounds are clear. Maintaining good O2 saturations in the 90s on room air. I discussed the assessment and plan of care with my nurse practitioner, Sara Mtz. I attest to the above consultation as dictated by her. Time with Patient: Greater than 30
[2021-05-18 11:48] LABS: Erythrocyte Sedimentation Rate 27 mm/Hr (0-30)
[2021-05-18 15:23] LABS: ALT 18 U/L (4-34); AST 35 U/L (14-36); African American GFR (CKD) 82 (>60 ml/min/1.73 sqM); Albumin 3.4 g/dL (3.5-5.0); Albumin/Globulin Ratio 1.3; Alkaline Phosphatase 80 U/L (38-126); Anion Gap 7 mmol/L; Blood Urea Nitrogen 17 mg/dL (7-17); Calcium 8.7 mg/dL (8.4-10.2); Carbon Dioxide 21 mmol/L (22-30); Chloride 107 mmol/L (98-107); Globulin 2.6 g/dL; Glucose 89 mg/dL (74-99); Non-African American GFR(CKD) 71 (>60 ml/min/1.73 sqM); Potassium 4.2 mmol/L (3.5-5.1); Sodium 135 mmol/L (137-145); Total Bilirubin 0.3 mg/dL (0.2-1.3)
[2021-05-18] MEDS: DEXAMETHASONE SOD PHOSPHATE 10 MG/ML 1 ML VIAL IV SCH (15:34)
[2021-05-18] MEDS: SODIUM CHLORIDE 0.9% 1,000 ML IV SCH (15:34)
--- NOTE | 2021-05-18 17:15 | PN ---
PROGRESS NOTE DATE OF SERVICE: 05/18/2021 This 89-year-old woman was admitted with acute COVID-19 infection with bilateral pneumonia had some vomiting also yesterday which is probably indicative of acute COVID-19. The patient also had chest pain. Cardiology is recommending medical treatment at this time. The patient is being closely monitored. Hemoglobin was 14.1 yesterday. Today it is 12.3 after IV fluids. ESR is 29. Inflammatory markers are mildly elevated. NT-proBNP is 2110. Two-dimensional echo reports are pending at this time. No chest pain. No palpitations. Past medical history reviewed. REVIEW OF SYSTEMS: CARDIOVASCULAR SYSTEM: As mentioned earlier. RESPIRATION: As mentioned earlier. GI: As mentioned earlier. : No dysuria. NERVOUS SYSTEM: No numbness, weakness. ALLERGY/IMMUNOLOGY: No asthma, hayfever. MUSCULOSKELETAL: As mentioned earlier. as mentioned earlier. PHYSICAL EXAMINATION: Patient alert and oriented x3. Pulse 68, blood pressure 99/56, respiration 18, temperature 98.4, pulse ox % on room air. HEENT: Conjunctivae normal. NECK: No jugular venous distention. CARDIOVASCULAR: S1, S2 muffled. RESPIRATION: Breath sounds diminished at the bases. A few scattered rhonchi. ABDOMEN: Soft, nontender. No mass palpable. LEGS: No edema. No swelling. NERVOUS SYSTEM: No focal deficit. LABS: WBC 9.36 and ESR is 29. Other labs are noted. Chest CTA, which was reviewed personally by me, showed no acute CT process. No acute pulmonary embolism. ASSESSMENT: 1. Acute COVID-19 infection with possible early COVID-19 interstitial pneumonia. 2. Chest pain. Rule out coronary artery disease. Myocardial infarction ruled out. 3. Vomiting, possibly acute gastritis secondary to COVID-19. 4. Hyponatremia. 5. Hypertension. 6. Hyperlipidemia. 7. History of myocardial infarction. 8. History of hypothyroidism. 9. History of hip replacement. 10.History of coronary artery disease, stent. 11.History of hysterectomy. 12.History of degenerative joint disease. 13.Remote history of nicotine dependence. 14.Obesity with body mass index of 32.6. RECOMMENDATIONS AND DISCUSSION: I recommend to continue current medications, continue with symptomatic treatment. The patient is extremely keen on going home, but the patient is n.p.o. because of some coffee-ground vomitus last night. Hemoglobin is stable. No more vomiting. I would recommend gradually starting the diet, and if the patient is able to tolerate the diet, then send the patient home. Otherwise, repeat labs be ordered tomorrow. Once again, the prognosis is extremely guarded because of multiple complex medical issues. Further recommendations to follow. MMODL / IJN: [id number] / MTDD
[2021-05-18 17:40] LABS: Ferritin 247.4 ng/mL (10.0-291.0)
[2021-05-18 17:59] LABS: Appearance,Urine Clear (Clear); Bilirubin,Urine Negative (Negative); Blood,Urine Negative (Negative); Color,Urine Light Yellow; Glucose,Urine (UA) Negative (Negative); Ketones,Urine Negative (Negative); Leukocyte Esterase,Urine Negative (Negative); Nitrite,Urine Negative (Negative); PH, Urine 5.5 (5.0-8.0); Protein,Urine Negative (Negative); Specific Gravity,Urine 1.012 (1.001-1.035); Urobilinogen,Urine <2.0 mg/dL (<2.0)
--- NOTE | 2021-05-18 19:00 | ECHOF ---
Referral Reason:chf MEASUREMENTS -------- HEIGHT: 165.1 cm WEIGHT: 83.5 kg BP: 99/56 RVIDd: 3.1 cm (< 3.3) IVSd: 1.5 cm (0.6 - 1.1) LVIDd: 4.2 cm (3.9 - 5.3) LVPWd: 1.2 cm (0.6 - 1.1) IVSs: 1.7 cm LVIDs: 2.7 cm LVPWs: 1.8 cm LAESV Index (A-L): 21.25 ml/m MV EXCURSION: 20.477 mm (> 18.000) MV EF SLOPE: 53 mm/s (70 - 150) EPSS: 0.4 cm MV E Jhon: 0.70 m/s MV DecT: 282 ms MV A Jhon: 1.15 m/s MV E/A Ratio: 0.61 RAP: 5.00 mmHg RVSP: 38.37 mmHg FINDINGS -------- Sinus rhythm. This was a technically adequate study. The left ventricular size is normal. There is moderate concentric left ventricular hypertrophy. O verall left ventricular systolic function is normal with, an EF between 55 - 60 %. The diastolic fi lling pattern is normal for the age of the patient 15.64. The right ventricle is normal in size. Normal LA size by volume 22+/-6 ml/m2. The right atrial size is normal. Interatrial and interventricular septum intact. The aortic valve was not well visualized. There is no evidence of aortic regurgitation. There is no evidence of aortic stenosis. There is trace mitral regurgitation. Mild tricuspid regurgitation present. There is mild pulmonary hypertension. The right ventricular systolic pressure, as measured by Doppler, is 38.37mmHg. There is no pulmonic regurgitation present. The aortic root size is normal. Normal inferior vena cava with normal inspiratory collapse consistent with estimated right atrial pre ssure of 5 mmHg. There is a small, generalized pericardial effusion present. CONCLUSIONS -------- 1. The left ventricular size is normal. 2. There is moderate concentric left ventricular hypertrophy. 3. Overall left ventricular systolic function is normal with, an EF between 55 - 60 %. 4. Mild tricuspid regurgitation present. 5. There is mild pulmonary hypertension. 6. The right ventricular systolic pressure, as measured by Doppler, is 38.37mmHg. 7. There is a small, generalized pericardial effusion present. [employer] INSPECTOR: Cheri Paredes RDCS
[2021-05-18 19:12] VITALS: RESP 18
[2021-05-18 21:52] LABS: Chol/HDL Ratio 3.61
--- NOTE | 2021-05-19 00:42 | P.CONS ---
History of Present Illness - Reason for Consult Consult date: 05/18/21 covid 19 infection Requesting physician: Yanick Armijo - Chief Complaint upper back pain x 1 day - History of Present Illness History of present illness : Patient is 89-year female presenting to [facility] ER yesterday afternoon for evaluation of pain across the upper back between the shoulder blades patient pain started the night before presentation to the hospital patient also complains of pain to the shoulder area and she apparently have similar symptoms when she did have cardiac cath that concern her and she presented to the hospital patient denies having any difficulty breathing patient denies having any chest pain or cough no nausea no vomiting no abdominal pain or any diarrhea with the symptom the patient did present to the hospital on arrival to the ER patient was afebrile subsequently spiked a fever of 101 degree form height patient did not have any hypoxemia initially is currently on room air did have a normal white count with no lym phopenia kidney function was normal liver enzymes are normal CRP was mildly elevated urine is negative patient did have a chest x-ray chronic changes with mild complicated without acute pulmonary process patient has received monoclonal antibodies in the ER subsequently has been admitted to [facility] for acute coronary syndrome, as of this morning patient is feeling better on room air denies any cough or chest pain and wants to go home Review of system: CONSTITUTIONAL: Positive for weakness denies fever. EYES: No complaint. ENT: No complaint. RESPIRATORY: As per history of present illness. CARDIOVASCULAR: As per history of present illness. GENITOURINARY: No complaint. GASTROINTESTINAL: No complaint. MUSCULOSKELETAL: No complaint. INTEGUMENTARY: No complaint. PSYCHOLOGIC: No complaint. ENDOCRINE: No complaint. NEUROLOGIC: No complaint. Past medical history : Reviewed, documented below Past surgical history : Reviewed, documented below Social history: Reviewed, documented below Medications: Reviewed, as documented below EXAMINATION: Vital sigans= Reviewed and documented below GENERAL DESCRIPTION: Elderly female lying in bed, no distress. No tachypnea or accessory muscle of respiration use. HEENT: Shows Pallor , no scleral icterus. Oral mucous membrane is dry. NECK: Trachea central, no thyromegaly. LUNGS: Unlabored breathing. Clear to auscultation anteriorly. No wheeze or crackle. HEART: S1, S2, regular rate and rhythm. ABDOMEN: Soft, no tenderness , guarding or rigidity EXTREMITIES: No edema of feet. SKIN: No rash, no masses palpable. NEUROLOGICAL: The patient is awake, alert, oriented x3, mood and affect normal. LABS AND RADIOLOGY: Reviewed results see below Assessment : Patient presented to hospital with upper back pain between the shoulder blade in this patient who do not have any fever denies any shortness of breath no significant hypoxemia or any cough chest x-ray was negative for any acute infiltrate in this patient who was an ideal candidate for monoclonal antibodies and have received it treatment from hours will be mostly supportive with no need for remdesivir or steroids Plan: 1-treatment is mostly supportive in the form of multivitamins zinc and ascorbic acid 2-no need for remdesivir 3-droplet isolation and respiratory support We will follow on clinical condition and cultures to further adjust medication if needed Thank you for this consultation we will follow the patient along with you Past Medical History Past Medical History: Hyperlipidemia, Hypertension, Myocardial Infarction ([place]), Thyroid Disorder Additional Past Medical History / Comment(s): hip replacement Last Myocardial Infarction Date:: 2011 History of Any Multi-Drug Resistant Organisms: None Reported Past Surgical History: Appendectomy, Heart Catheterization With Stent, Hysterectomy, Orthopedic Surgery, Tonsillectomy Additional Past Surgical History / Comment(s): STENTS X2, ALEC CAT, GANGLION CYST LEFT FOOT Past Anesthesia/Blood Transfusion Reactions: No Reported Reaction Date of Last Stent Placement:: 2011 Past Psychological History: No Psychological Hx Reported Smoking Status: Former smoker Past Alcohol Use History: None Reported Additional Past Alcohol Use History / Comment(s): QUIT SMOKING 2011, SMOKED 1/2 PPD FROM AGE 22 Past Drug Use History: None Reported - Past Family History Mother Family Medical History: No Reported History Medications and Allergies Home Medications Medication Instructions Recorded Confirmed Type Levothyroxine Sodium [Synthroid] 100 mcg PO DAILY 05/17/15 05/17/21 History Aspirin [Adult Low Dose Aspirin EC] 81 mg PO DAILY PRN 05/17/21 05/17/21 History amLODIPine [Norvasc] 5 mg PO DAILY 05/17/21 05/17/21 History Allergies Allergy/AdvReac Type Severity Reaction Status Date / Time levofloxacin Allergy Unknown Verified 05/17/21 14:00 Physical Exam Vitals: Vital Signs Temp Pulse Pulse Resp BP BP BP 05/18/21 07:00 98.2 F 66 16 102/61 05/18/21 01:59 98.4 F 68 18 99/56 05/17/21 20:00 84 16 05/17/21 19:54 101 F H 84 16 144/55 05/17/21 18:02 98.2 F 79 14 148/82 05/17/21 17:56 98.2 F 79 14 148/82 05/17/21 16:59 97.4 F L 78 18 140/62 05/17/21 15:22 71 18 140/58 05/17/21 13:05 98.2 F 82 18 138/78 Pulse Ox 05/18/21 07:00 93 L 05/18/21 01:59 92 L 05/17/21 20:00 05/17/21 19:54 96 05/17/21 18:02 96 05/17/21 17:56 93 L 05/17/21 16:59 96 05/17/21 15:22 95 05/17/21 13:05 97 Intake and Output 05/17/21 05/18/21 05/18/21 22:59 06:59 14:59 Other: Voiding Method Toilet Toilet # Voids 0 1 Weight 83.461 kg Results CBC & Chem 7: 05/18/21 05:31 05/18/21 05:51 Labs: Abnormal Lab Results - Last 24 Hours (Table) 05/17/21 05/17/21 05/17/21 Range/Units 13:16 13:16 13:16 RBC (4.10-5.20) X 10*6/uL RDW (11.5-14.5) % Eosinophils # (0.04-0.35) X 10*3/uL ESR (0-20) mm/hr D-Dimer 0.83 H (<0.60) mg/L FEU Sodium 135 L (137-145) mmol/L Carbon Dioxide (22-30) mmol/L BUN 20 H (7-17) mg/dL Glucose 104 H (74-99) mg/dL C-Reactive Protein (<1.0) mg/dL Procalcitonin (0.02-0.09) ng/mL Coronavirus (PCR) Detected A (Not Detectd) 05/17/21 05/17/21 05/18/21 Range/Units 20:21 20:21 05:31 RBC (4.10-5.20) X 10*6/uL RDW (11.5-14.5) % Eosinophils # (0.04-0.35) X 10*3/uL ESR 29 H (0-20) mm/hr D-Dimer (<0.60) mg/L FEU Sodium 134 L (137-145) mmol/L Carbon Dioxide 21 L (22-30) mmol/L BUN 20 H (7-17) mg/dL Glucose 105 H (74-99) mg/dL C-Reactive Protein 1.2 H 2.0 H (<1.0) mg/dL Procalcitonin (0.02-0.09) ng/mL Coronavirus (PCR) (Not Detectd) 05/18/21 05/18/21 Range/Units 05:31 05:31 RBC 4.04 L (4.10-5.20) X 10*6/uL RDW 14.9 H (11.5-14.5) % Eosinophils # 0 L (0.04-0.35) X 10*3/uL ESR (0-20) mm/hr D-Dimer (<0.60) mg/L FEU Sodium (137-145) mmol/L Carbon Dioxide (22-30) mmol/L BUN (7-17) mg/dL Glucose (74-99) mg/dL C-Reactive Protein (<1.0) mg/dL Procalcitonin 0.28 H (0.02-0.09) ng/mL Coronavirus (PCR) (Not Detectd)
[2021-05-19] MEDS: SODIUM CHLORIDE 0.9% 1,000 ML IV SCH (00:44)
[2021-05-19] MEDS: LEVOTHYROXINE 100 MCG TAB PO SCH (05:36)
[2021-05-19 07:36] VITALS: TEMP 97.6
[2021-05-19] MEDS ORDERED: ASPIRIN 81 MG PO SCH (09:00)
[2021-05-19] MEDS: amLODIPine 5 MG TAB PO SCH (09:13)
[2021-05-19] MEDS: DEXAMETHASONE SOD PHOSPHATE 10 MG/ML 1 ML VIAL IV SCH (09:13)
[2021-05-19] MEDS: PANTOPRAZOLE 40 MG/10 ML VIAL IVP SCH (09:16)
[2021-05-19 11:12] VITALS: BP 147/75
[2021-05-19 11:38] LABS: Basophils # (A) 0.01 X 10*3/uL (0.00-0.10); Basophils % (A) 0.2 %; Eosinophils # (A) 0 X 10*3/uL (0.04-0.35); Eosinophils % (A) 0 %; HCT 37.7 % (37.2-46.3); HGB 12.2 g/dL (12.0-15.0); Lymphocytes # (A) 1.89 X 10*3/uL (0.90-5.00); Lymphocytes % (A) 34.4 %; MCH 29.8 pg (27.0-32.0); MCHC 32.4 g/dL (32.0-37.0); MCV 92.2 fL (80.0-97.0); Mean Platelet Volume 11.8 fL (9.5-12.2); Monocytes # (A) 0.47 X 10*3/uL (0.20-1.00); Monocytes % (A) 8.6 %; Neutrophils % (A) 56.4 %; Platelet Count 167 X 10*3/uL (140-440); RBC 4.09 X 10*6/uL (4.10-5.20); RDW 14.6 % (11.5-14.5); WBC 5.49 X 10*3/uL (4.50-10.00)
[2021-05-19 13:15] VITALS: PULSE 62
--- NOTE | 2021-05-19 18:36 | DS ---
DISCHARGE SUMMARY DATE OF SERVICE: 05/19/2021 FINAL DIAGNOSES: 1. Acute Covid 19 infection with possible early Covid 19 interstitial pneumonia. 2. Chest pain, rule out coronary artery disease, myocardial infarction ruled out. 3. Vomiting, gastritis possible secondary to Covid 19. 4. Hyponatremia. 5. Hypertension. 6. History of myocardial infarction. 7. Hypothyroidism. 8. History of hip replacement. 9. History of CAD with stent. 10.History of hysterectomy. 11.History of degenerative joint disease. 12.Remote history of nicotine dependence. 13.Obesity with body mass index of 32.6. DISCHARGE DISPOSITION: The patient will be discharged in stable with guarded prognosis. The patient is extremely keen on going home at this time. I recommend outpatient followup. HISTORY OF PRESENT ILLNESS: This 89-year-old woman with a past medical history of multiple medical problems including acute Covid-19 infection and chest pain. Cardiology saw the patient and recommend outpatient followup. Infectious Disease also saw the patient and recommended follow up with Dr. Damian, who is the primary physician. Also recommend repeat labs and if they have any abnormality also recommend GI evaluation as outpatient. On exam, vitals stable. Cardiovascular S1 and S2. Abdomen soft. Nervous system no focal deficit. The patient is extremely keen on going home at this time. DISCHARGE INSTRUCTIONS: Discharge diet is cardiac. Followup with Dr. Damian in 2-3 days with CBC and BMP. Follow with Cardiology as recommended for possible outpatient stress test. MEDICATIONS: 1. Ecotrin 81 mg p.o. daily. 2. Norvasc 5 mg p.o. daily. 3. Synthroid 100 mg p.o. daily. 4. Dexamethasone 6 mg p.o. daily for 3 more days. 5. Multivitamins 1 p.o. daily. 6. Zinc 220 mg p.o. daily. 7. Protonix 40 mg p.o. Followup with Dr. Ever Grove as recommended for evaluation if the symptoms of vomiting persist or if there is a drop in hemoglobin. MMODL / IJN: [id number] /
== END 2021-05-19 14:00 | disposition home or self-care (01) ==
LOC: EC 12:59 → 6NMEDSUR 14:42
PROVIDERS: ADMIT Internal Medicine; ATTEND Internal Medicine
DX: U07.1 COVID-19 (principal); R07.9 Chest pain, unspecified; R11.10 Vomiting, unspecified; E03.9 Hypothyroidism, unspecified; E66.9 Obesity, unspecified; E78.5 Hyperlipidemia, unspecified; E87.1 Hypo-osmolality and hyponatremia; I10 Essential (primary) hypertension; I25.119 Atherosclerotic heart disease of native coronary artery with unspecified angina pectoris; I25.2 Old myocardial infarction; I49.3 Ventricular premature depolarization; K29.70 Gastritis, unspecified, without bleeding; Z68.32 Body mass index [BMI] 32.0-32.9, adult; Z79.82 Long term (current) use of aspirin; Z79.890 Hormone replacement therapy; Z79.899 Other long term (current) drug therapy; Z87.891 Personal history of nicotine dependence; Z90.710 Acquired absence of both cervix and uterus; Z95.5 Presence of coronary angioplasty implant and graft; Z96.649 Presence of unspecified artificial hip joint
CPT/HCPCS: 96376 ×2; 96361; 96375 ×2; 96365; 99291; 36415; 93005; 93306; 85379; 83880; 80061; 80053 ×2; 85652 ×2; 82728; 83605; 83615; 83735; 84484; 85025 ×3; 85610; 85730; 86140 ×2; 81003; 87040; 84145; 87635; 71046; 71275; G0378 ×3; J1100 ×2; J2405; C9113 ×3; Q9967; Q0243